=== PATIENT | female | born 1960 | race Two or more races ===

== ENCOUNTER 2021-09-25 11:18 | Emergency (ER) | payer MEDICAID ==
[~2021-09-25] VITALS: Ht 154.9 cm; Wt 66.9 kg
[2021-09-25 14:33] VITALS: BP 111/35
[2021-09-25 15:51] LABS: Basophils # (auto) 0 10 ^3/uL (0-0.2); Basophils % (auto) 0.2 % (0.0-2.0); Eosinophils # (auto) 0.1 10 ^3/uL (0-0.8); Eosinophils % (auto) 3.1 % (0.0-7.0); Hematocrit 28.7 % (36.0-46.0); Lymphocytes # (auto) 0.8 10 ^3/uL (0.4-5.4); Lymphocytes % (auto) 17.8 % (10.0-50.0); Mean Corpuscular Hemoglobin 29.4 pg (28.0-32.0); Mean Corpuscular Hgb Conc. 31.5 g/dL (32.0-36.0); Mean Corpuscular Volume 93.4 fL (80.0-100.0); Monocytes # (auto) 0.2 10 ^3/uL (0-1.3); Neutrophils # (auto) 3.2 10 ^3/uL (1.6-8.6); Neutrophils % (auto) 74.9 % (37.0-80.0); Nucleated Red Blood Cells % 0.1 %; Red Blood Cells 3.08 10^6/uL (4.0-5.20); Red Cell Distribution Width 17.5 % (11.8-14.3); White Blood Cell 4.3 10^3/uL (4.4-10.8)
[2021-09-25 16:08] LABS: INR 1.12 (0.9-1.15); Partial Thromboplastin Time 29.1 sec (24.6-33.4)
[2021-09-25 16:20] LABS: Albumin 3.9 g/dL (3.4-5.0); Calcium 8.6 mg/dL (8.5-10.1); Potassium 4.1 mmol/L (3.5-5.1)
[2021-09-25 16:23] LABS: Bilirubin, Total 0.6 mg/dL (0.2-1.0)
== END 2021-09-25 16:46 | disposition home or self-care (01) ==
LOC: ER 11:18
DX: D64.9 Anemia, unspecified (principal); R23.3 Spontaneous ecchymoses; E11.9 Type 2 diabetes mellitus without complications; I10 Essential (primary) hypertension; Z88.6 Allergy status to analgesic agent; Z88.8 Allergy status to other drugs, medicaments and biological substances
CPT/HCPCS: 36415; 80053; 85025; 85610; 85730

== ENCOUNTER 2022-10-15 10:16 | Inpatient (IN) | payer MEDICAID ==
[2022-10-15] VITALS (7 sets, daily range): BP systolic 112–126; BP diastolic 34–44; PULSE 80–86; RESP 12–28; TEMP 98–98.6; O2SAT 93–98
[~2022-10-15] VITALS: Ht 154.9 cm; Wt 69.9 kg
[2022-10-15 11:25] LABS: Urine Bacteria MANY /hpf (None Seen); Urine Blood Negative /uL (Negative); Urine Clarity CLOUDY (Clear); Urine Color Yellow (Yellow); Urine Hyaline Cast MANY /lpf (0 - 2); Urine Mucus FEW (None Seen); Urine Protein, UAD 1+ (Negative); Urine Urobilinogen Normal (Negative); Urine WBC 110 /hpf (0 - 5); Urine pH 5.5 (5.0-8.0)
[2022-10-15 12:01] LABS: Mean Corpuscular Hemoglobin 28.8 pg (28.0-32.0); Mean Corpuscular Hgb Conc. 31.3 g/dL (32.0-36.0); Mean Corpuscular Volume 91.8 fL (80.0-100.0); Red Blood Cells 2.18 10^6/uL (4.0-5.20)
[2022-10-15 12:06] LABS: Red Cell Distribution Width 21.7 % (11.8-14.3)
[2022-10-15 12:10] LABS: Hemoglobin 6.3 g/dL (12.2-16.2)
[2022-10-15 12:11] LABS: Albumin 3.9 g/dL (3.2-4.8); Alkaline Phosphatase 129 U/L (46-116); Anion Gap 9.8 (5-15); Aspartate Aminotransferase < 8 U/L (13-40); BUN/Creatinine Ratio 16.2 (10.0-20.0); Band Neutrophils % (manual) 0; Basophils % (manual) 0 (0.0-2.0); Bilirubin, Total 1.2 mg/dL (0.2-1.0); Blast Cells 0; Blood Urea Nitrogen 12 mg/dL (9-23); Calcium 8.7 mg/dL (8.5-10.1); Carbon Dioxide 19.2 mmol/L (20-30); Chloride 109 mmol/L (98-107); Glucose 181 mg/dL (74-106); Metamyelocytes % 0; Myelocytes % 0; Potassium 4.3 mmol/L (3.5-5.1); Promyelocytes % 0; Reactive Lymphocytes 0; Sodium 138 mmol/L (136-145); Total Protein 7.2 g/dL (5.7-8.2)
[2022-10-15 12:17] LABS: Alanine Aminotransferase < 9 U/L (7-40)
[2022-10-15] MEDS ORDERED: cefTRIAXone 1GM/50ML D5W 50 ML IV ONE (13:00)
[2022-10-15] MEDS ORDERED: BACL10TA PO ×2 (13:54→18:01)
[2022-10-15] MEDS ORDERED: MONT-8 PO ×2 (13:54→18:01)
[2022-10-15] MEDS ORDERED: FERR325T20 PO (13:54)
[2022-10-15] MEDS ORDERED: CHOL20003 PO (13:54)
[2022-10-15] MEDS ORDERED: ESCI1TAB37 PO (13:54)
[2022-10-15] MEDS ORDERED: LORA-483 PO (13:54)
[2022-10-15] MEDS ORDERED: METF-372 PO (13:54)
[2022-10-15] MEDS ORDERED: CHOL20002 PO ×2 (13:54→18:01)
[2022-10-15] MEDS ORDERED: ESTR0.3T PO ×2 (13:54→18:01)
[2022-10-15] MEDS ORDERED: EZET-10 PO ×2 (13:54→18:01)
[2022-10-15] MEDS ORDERED: ATOR10TA52 PO ×2 (13:54→18:01)
[2022-10-15] MEDS ORDERED: GLIM4TAB42 PO ×2 (13:54→18:01)
[2022-10-15] MEDS ORDERED: GABA-1250 PO ×2 (13:54→18:01)
[2022-10-15] MEDS ORDERED: ACETAMINOPHEN 325 MG TAB PO PRN ×2 (14:00)
[2022-10-15] MEDS ORDERED: HYDROcodone-ACET 5/325MG TAB PO PRN (14:00)
[2022-10-15] MEDS ORDERED: SODIUM CHLORIDE 0.9% 1,000 ML IV SCH ×2 (14:00)
[2022-10-15] MEDS ORDERED: DEXTROSE (50%) 50ML SYRG IV PRN (14:00)
[2022-10-15 14:27] LABS: % Iron Saturation 17.3 % (15-50)
[2022-10-15 14:40] LABS: Eosinophils % (manual) 2 (0-7); Lymphocytes % (manual) 25 (10.0-50.0); Monocytes % (manual) 2 (0-12); Platelet Estimate Adequate
[2022-10-15 15:03] LABS: INR 1.19 (0.9-1.15); Prothrombin Time 12.4 sec (9.3-11.8)
[2022-10-15 16:31] LABS: Folate (Folic Acid) 21.03 ng/mL (>5.38)
[2022-10-15 17:36] LABS: Platelet Estimate Adequate
[2022-10-15 17:37] LABS: Anisocytosis Slight; Ovalocytes FEW; Tear Drop Cells FEW
[2022-10-15] MEDS ORDERED: OXYM0.0594 (18:01)
[2022-10-15] MEDS ORDERED: FERR240T9 PO (18:01)
[2022-10-15] MEDS ORDERED: ASCO500C5 OR (18:01)
[2022-10-15] MEDS ORDERED: FER325T PO (18:01)
[2022-10-15] MEDS ORDERED: LORA-483 GT (18:01)
[2022-10-15] MEDS ORDERED: ZINC100T5 PO (18:01)
[2022-10-15] MEDS: ACCU-CHEK COMFORT CURVE STRIP VI SCH ×2 (18:41→21:58)
[2022-10-15] MEDS: InsuLIN REG 1unit/0.01ml Soln (100units/ml) SC SCH ×2 (18:42→22:03)
[2022-10-15 21:37] LABS: Basophils # (auto) 0 10 ^3/uL (0-0.2); Eosinophils # (auto) 0.2 10 ^3/uL (0-0.8); Nucleated Red Blood Cells % 0.1 %; White Blood Cell 3.8 10^3/uL (4.4-10.8)
[2022-10-15 21:39] LABS: Basophils % (auto) 0.6 % (0.0-2.0); Eosinophils % (auto) 4.9 % (0.0-7.0); Hematocrit 23.7 % (36.0-46.0); Hemoglobin 7.4 g/dL (12.2-16.2); Lymphocytes # (auto) 0.8 10 ^3/uL (0.4-5.4); Lymphocytes % (auto) 20.4 % (10.0-50.0); Mean Corpuscular Hemoglobin 28.9 pg (28.0-32.0); Mean Corpuscular Volume 93.1 fL (80.0-100.0); Monocytes # (auto) 0.2 10 ^3/uL (0-1.3); Monocytes % (auto) 4.1 % (0.0-12.0); Neutrophils # (auto) 2.6 10 ^3/uL (1.6-8.6); Red Blood Cells 2.54 10^6/uL (4.0-5.20)
[2022-10-15 21:53] LABS: Red Cell Distribution Width 20.2 % (11.8-14.3)
[2022-10-15] MEDS: BACLOFEN 10 MG TAB PO SCH (22:04)
[2022-10-15] MEDS: ATORVASTATIN 20 MG TAB PO SCH (22:04)
[2022-10-15] MEDS: GABAPENTIN 300 MG CAP PO SCH (22:04)
[2022-10-16 00:56] LABS: Basophils # (auto) 0 10 ^3/uL (0-0.2); Basophils % (auto) 0.3 % (0.0-2.0); Eosinophils # (auto) 0.2 10 ^3/uL (0-0.8); Eosinophils % (auto) 4.7 % (0.0-7.0); Hematocrit 22.9 % (36.0-46.0); Hemoglobin 7.3 g/dL (12.2-16.2); Lymphocytes # (auto) 0.9 10 ^3/uL (0.4-5.4); Lymphocytes % (auto) 24.2 % (10.0-50.0); Mean Corpuscular Hemoglobin 29.4 pg (28.0-32.0); Mean Corpuscular Hgb Conc. 32.1 g/dL (32.0-36.0); Mean Corpuscular Volume 91.7 fL (80.0-100.0); Monocytes # (auto) 0.2 10 ^3/uL (0-1.3); Monocytes % (auto) 4.7 % (0.0-12.0); Neutrophils # (auto) 2.4 10 ^3/uL (1.6-8.6); Neutrophils % (auto) 66.1 % (37.0-80.0); Nucleated Red Blood Cells % 0.1 %; Red Cell Distribution Width 19.7 % (11.8-14.3); White Blood Cell 3.7 10^3/uL (4.4-10.8)
[2022-10-16 05:00] VITALS: BP 98/32; PULSE 80; RESP 16; TEMP 97.9; O2SAT 92
[2022-10-16] MEDS: BACLOFEN 10 MG TAB PO SCH ×3 (06:00→21:05)
[2022-10-16] MEDS: GABAPENTIN 300 MG CAP PO SCH ×3 (06:00→21:06)
[2022-10-16] MEDS: InsuLIN REG 1unit/0.01ml Soln (100units/ml) SC SCH ×4 (06:27→21:09)
[2022-10-16] MEDS: ACCU-CHEK COMFORT CURVE STRIP VI SCH ×4 (06:27→21:06)
[2022-10-16 06:32] LABS: Basophils # (auto) 0 10 ^3/uL (0-0.2); Basophils % (auto) 0.2 % (0.0-2.0); Eosinophils # (auto) 0.2 10 ^3/uL (0-0.8); Hematocrit 22.8 % (36.0-46.0); Hemoglobin 7.3 g/dL (12.2-16.2); Lymphocytes # (auto) 0.9 10 ^3/uL (0.4-5.4); Lymphocytes % (auto) 24.6 % (10.0-50.0); Mean Corpuscular Volume 90.6 fL (80.0-100.0); Monocytes # (auto) 0.2 10 ^3/uL (0-1.3); Monocytes % (auto) 5.1 % (0.0-12.0); Neutrophils # (auto) 2.4 10 ^3/uL (1.6-8.6); Neutrophils % (auto) 65.1 % (37.0-80.0); Nucleated Red Blood Cells % 0.2 %; Red Blood Cells 2.52 10^6/uL (4.0-5.20); Red Cell Distribution Width 19.8 % (11.8-14.3); White Blood Cell 3.7 10^3/uL (4.4-10.8)
[2022-10-16 06:46] LABS: Albumin 3.8 g/dL (3.2-4.8); Alkaline Phosphatase 121 U/L (46-116); Anion Gap 8.3 (5-15); Aspartate Aminotransferase < 8 U/L (13-40); BUN/Creatinine Ratio 15.9 (10.0-20.0); Blood Urea Nitrogen 11 mg/dL (9-23); Calcium 8.9 mg/dL (8.7-10.4); Carbon Dioxide 21.7 mmol/L (20-30); Chloride 108 mmol/L (98-107); Glucose 134 mg/dL (74-106); Sodium 138 mmol/L (136-145)
[2022-10-16 06:47] LABS: Bilirubin, Total 1.7 mg/dL (0.2-1.0); Total Protein 7.2 g/dL (5.7-8.2)
[2022-10-16 06:51] LABS: Alanine Aminotransferase < 9 U/L (7-40)
[2022-10-16 09:00] VITALS: BP 116/48; PULSE 78; RESP 19; TEMP 97.9; O2SAT 96
[2022-10-16] MEDS ORDERED: CHOLECALCIFEROL (VITD3) 2,000 UNIT CAP/TAB PO SCH (10:00)
[2022-10-16] MEDS ORDERED: PATIENTS OWN MEDICATION (Escitalopram Oxalate 1 TAB) PO SCH (10:00)
[2022-10-16] MEDS: ZETIA 10 MG PO SCH (10:00)
[2022-10-16] MEDS: [UNRECOGNIZED DRUG - OTHER] PO SCH (10:00)
[2022-10-16] MEDS ORDERED: PATIENTS OWN MEDICATION (Atorvastatin Calcium 1 TAB) PO SCH (10:00)
[2022-10-16] MEDS ORDERED: PATIENTS OWN MEDICATION (Cholecalciferol (Vitamin D-3 Super Strengt) 1 TAB) PO SCH (10:00)
[2022-10-16] MEDS: CITALOPRAM HYDROBR 20 MG TAB PO SCH (10:35)
[2022-10-16] MEDS: cefTRIAXone 1GM/50ML D5W 50 ML IV SCH (10:35)
[2022-10-16] MEDS: CHOLECALCIFEROL (VITD3) 2,000 UNIT CAP/TAB PO SCH (10:36)
[2022-10-16] MEDS: MONTELUKAST SODIUM 10 MG TAB PO SCH (10:36)
[2022-10-16 12:26] LABS: Basophils # (auto) 0 10 ^3/uL (0-0.2); Basophils % (auto) 0.3 % (0.0-2.0); Eosinophils # (auto) 0.2 10 ^3/uL (0-0.8); Hemoglobin 7.2 g/dL (12.2-16.2); Lymphocytes # (auto) 0.7 10 ^3/uL (0.4-5.4); Monocytes # (auto) 0.1 10 ^3/uL (0-1.3); Neutrophils # (auto) 2.3 10 ^3/uL (1.6-8.6); White Blood Cell 3.3 10^3/uL (4.4-10.8)
[2022-10-16 12:30] LABS: Eosinophils % (auto) 4.7 % (0.0-7.0); Hematocrit 22.2 % (36.0-46.0); Mean Corpuscular Hemoglobin 29.2 pg (28.0-32.0); Mean Corpuscular Hgb Conc. 32.3 g/dL (32.0-36.0); Mean Corpuscular Volume 90.3 fL (80.0-100.0); Monocytes % (auto) 4.2 % (0.0-12.0); Neutrophils % (auto) 69.8 % (37.0-80.0); Red Blood Cells 2.46 10^6/uL (4.0-5.20); Red Cell Distribution Width 19.7 % (11.8-14.3)
[2022-10-16 13:00] VITALS: BP 120/53; PULSE 81; RESP 20; TEMP 98.2; O2SAT 93
[2022-10-16 17:00] VITALS: BP 117/42; PULSE 77; RESP 19; TEMP 97.8; O2SAT 94
[2022-10-16 19:01] LABS: Basophils # (auto) 0 10 ^3/uL (0-0.2); Eosinophils # (auto) 0.1 10 ^3/uL (0-0.8); Hemoglobin 7.3 g/dL (12.2-16.2); Lymphocytes # (auto) 0.6 10 ^3/uL (0.4-5.4); Mean Corpuscular Hgb Conc. 31.8 g/dL (32.0-36.0); Monocytes # (auto) 0.1 10 ^3/uL (0-1.3); Red Blood Cells 2.52 10^6/uL (4.0-5.20); Red Cell Distribution Width 19.5 % (11.8-14.3); White Blood Cell 2.8 10^3/uL (4.4-10.8)
[2022-10-16 19:02] LABS: Basophils % (auto) 0.3 % (0.0-2.0); Lymphocytes % (auto) 21.6 % (10.0-50.0); Mean Corpuscular Volume 91.1 fL (80.0-100.0); Monocytes % (auto) 3.5 % (0.0-12.0); Neutrophils # (auto) 1.9 10 ^3/uL (1.6-8.6); Neutrophils % (auto) 69.6 % (37.0-80.0); Nucleated Red Blood Cells % 0.3 %
[2022-10-16 19:22] LABS: % Iron Saturation 16.4 % (15-50)
[2022-10-16 20:00] VITALS: PULSE 77; RESP 19; O2SAT 94
[2022-10-16] MEDS: ATORVASTATIN 20 MG TAB PO SCH (21:10)
[2022-10-16 22:00] VITALS: BP 126/49; PULSE 84; RESP 20; TEMP 98; O2SAT 95
[2022-10-16] MEDS ORDERED: KETOROLAC TROMETH 30 MG/ML 1ML VIAL IV ONE (23:00)
[2022-10-16] MEDS ORDERED: ACETAMINOPHEN 325 MG TAB PO PRN (23:30)
[2022-10-17] MEDS ORDERED: ACETAMINOPHEN 325 MG TAB PO PRN
[2022-10-17 05:00] VITALS: BP 96/52; PULSE 65; RESP 22; TEMP 97.8; O2SAT 100
[2022-10-17] MEDS: ACCU-CHEK COMFORT CURVE STRIP VI SCH ×2 (06:16→12:35)
[2022-10-17] MEDS: BACLOFEN 10 MG TAB PO SCH (06:16)
[2022-10-17] MEDS: GABAPENTIN 300 MG CAP PO SCH (06:16)
[2022-10-17] MEDS: InsuLIN REG 1unit/0.01ml Soln (100units/ml) SC SCH ×2 (06:17→12:40)
[2022-10-17 06:26] LABS: Basophils # (auto) 0 10 ^3/uL (0-0.2); Eosinophils # (auto) 0.2 10 ^3/uL (0-0.8); Eosinophils % (auto) 6.7 % (0.0-7.0); Monocytes # (auto) 0.1 10 ^3/uL (0-1.3); Neutrophils # (auto) 1.9 10 ^3/uL (1.6-8.6); Nucleated Red Blood Cells % 0.1 %; Red Cell Distribution Width 19.8 % (11.8-14.3)
[2022-10-17 06:30] LABS: Basophils % (auto) 0.4 % (0.0-2.0); Hematocrit 21.3 % (36.0-46.0); Lymphocytes # (auto) 0.8 10 ^3/uL (0.4-5.4); Lymphocytes % (auto) 25.6 % (10.0-50.0); Mean Corpuscular Hemoglobin 29.9 pg (28.0-32.0); Mean Corpuscular Hgb Conc. 32.9 g/dL (32.0-36.0); Mean Corpuscular Volume 90.8 fL (80.0-100.0); Monocytes % (auto) 4.1 % (0.0-12.0); Neutrophils % (auto) 63.2 % (37.0-80.0); Red Blood Cells 2.34 10^6/uL (4.0-5.20); White Blood Cell 3.1 10^3/uL (4.4-10.8)
[2022-10-17 06:46] LABS: Anion Gap 5.2 (5-15); Calcium 8.7 mg/dL (8.7-10.4); Carbon Dioxide 24.8 mmol/L (20-30); Chloride 109 mmol/L (98-107); Glucose 153 mg/dL (74-106); Potassium 3.8 mmol/L (3.5-5.1); Sodium 139 mmol/L (136-145)
[2022-10-17 06:47] LABS: BUN/Creatinine Ratio 14.8 (10.0-20.0); Blood Urea Nitrogen 13 mg/dL (9-23)
[2022-10-17 06:48] LABS: Albumin 3.7 g/dL (3.2-4.8); Aspartate Aminotransferase < 8 U/L (13-40)
[2022-10-17 06:49] LABS: Bilirubin, Total 1.1 mg/dL (0.2-1.0)
[2022-10-17 06:58] LABS: Alanine Aminotransferase < 9 U/L (7-40); Alkaline Phosphatase 122 U/L (46-116)
[2022-10-17 08:00] VITALS: PULSE 82; RESP 20; O2SAT 94
[2022-10-17 09:18] VITALS: BP 119/41; PULSE 82; RESP 20; TEMP 97.8; O2SAT 94
[2022-10-17] MEDS ORDERED: ASPI1TAB20 PO (09:39)
[2022-10-17] MEDS ORDERED: CILO100T PO (09:40)
[2022-10-17] MEDS ORDERED: NITR-52 PO ×3 (09:41)
[2022-10-17] MEDS: [UNRECOGNIZED DRUG - OTHER] PO SCH (10:00)
[2022-10-17] MEDS: ZETIA 10 MG PO SCH (10:00)
[2022-10-17 10:49] VITALS: BP 119/41; PULSE 82; RESP 20; TEMP 97.8; O2SAT 94
[2022-10-17] MEDS: CITALOPRAM HYDROBR 20 MG TAB PO SCH (10:51)
[2022-10-17] MEDS: cefTRIAXone 1GM/50ML D5W 50 ML IV SCH (10:51)
[2022-10-17] MEDS: CHOLECALCIFEROL (VITD3) 2,000 UNIT CAP/TAB PO SCH (10:52)
[2022-10-17] MEDS: MONTELUKAST SODIUM 10 MG TAB PO SCH (10:52)
[2022-10-17 12:41] VITALS: BP 112/34; PULSE 81; RESP 20; TEMP 98.4; O2SAT 96
== END 2022-10-17 13:43 | disposition home or self-care (01) | DRG 197 ==
LOC: ER 10:16 → OVERFLOW 13:51 → WEST WING 16:33
PROVIDERS: ADMIT Internal Medicine Pulmonary Disease; ATTEND Internal Medicine Pulmonary Disease
PROC: 30233N1 Transfusion of Nonautologous Red Blood Cells into Peripheral Vein, Percutaneous Approach (ICD-10-PCS; principal; 2022-10-15)
DX: E11.51 Type 2 diabetes mellitus with diabetic peripheral angiopathy without gangrene (principal); I95.9 Hypotension, unspecified; D64.9 Anemia, unspecified; E11.65 Type 2 diabetes mellitus with hyperglycemia; E66.9 Obesity, unspecified; E78.5 Hyperlipidemia, unspecified; I10 Essential (primary) hypertension; N30.00 Acute cystitis without hematuria; Z88.6 Allergy status to analgesic agent; Z90.710 Acquired absence of both cervix and uterus; Z88.8 Allergy status to other drugs, medicaments and biological substances; Z82.49 Family history of ischemic heart disease and other diseases of the circulatory system; Z83.3 Family history of diabetes mellitus; Z85.72 Personal history of non-Hodgkin lymphomas; Z68.28 Body mass index [BMI] 28.0-28.9, adult
CPT/HCPCS: 36415; 71045; 71275; 76700; 80053; 81001; 82270; 82607; 82746; 82962; 83036; 83540; 83550; 83880; 84484; 85007; 85025; 85027; 85379; 85610; 86850; 86900; 86901; 86920; 87086; 93306; 93925; 93970; 96365; 99291; G0378; J0696; J1815

== ENCOUNTER 2022-11-01 11:11 | Inpatient (IN) | payer MEDICAID ==
[~2022-11-01] VITALS: Ht 154.9 cm; Wt 74.0 kg
[2022-11-01] VITALS (7 sets, daily range): BP systolic 111–118; BP diastolic 36–43; PULSE 81–91; RESP 18–26; TEMP 97.8–98.3; O2SAT 95–98
[~2022-11-01 11:11] MED LIST: ASCO500C5 OR; ASPI1TAB20 PO; ATOR10TA52 PO; BACL10TA PO; CHOL20002 PO; CHOL20003 PO; CILO100T PO; ESCI1TAB37 PO; ESTR0.3T PO; EZET-10 PO; FER325T PO; FERR240T9 PO; FERR325T20 PO; GABA-1250 PO; GLIM4TAB42 PO; LORA-483 GT; LORA-483 PO; METF-372 PO; MONT-8 PO; NITR-52 PO; OXYM0.0594; ZINC100T5 PO
[2022-11-01 12:33] LABS: Urine Bacteria MOD /hpf (None Seen); Urine Blood 1+ /uL (Negative); Urine Clarity HAZY (Clear); Urine Color Yellow (Yellow); Urine Hyaline Cast FEW /lpf (0 - 2); Urine Mucus FEW (None Seen); Urine Protein, UAD 1+ (Negative); Urine Specific Gravity 1.021 (1.001-1.035); Urine WBC 3 /hpf (0 - 5); Urine pH 5.5 (5.0-8.0)
[2022-11-01 12:47] LABS: Alkaline Phosphatase 125 U/L (46-116); Anion Gap 6 (5-15); Aspartate Aminotransferase < 8 U/L (13-40); BUN/Creatinine Ratio 30.6 (10.0-20.0); Blood Urea Nitrogen 30 mg/dL (9-23); Calcium 9.1 mg/dL (8.5-10.1); Carbon Dioxide 22 mmol/L (20-30); Chloride 106 mmol/L (98-107); Glucose 215 mg/dL (74-106); Potassium 4.1 mmol/L (3.5-5.1); Sodium 134 mmol/L (136-145)
[2022-11-01 12:48] LABS: Albumin 3.7 g/dL (3.2-4.8); Bilirubin, Total 1.3 mg/dL (0.2-1.0); Total Protein 6.9 g/dL (5.7-8.2)
[2022-11-01 12:53] LABS: Alanine Aminotransferase < 9 U/L (7-40)
[2022-11-01 12:58] LABS: Basophils # (auto) 0 10 ^3/uL (0-0.2); Basophils % (auto) 0.2 % (0.0-2.0); Eosinophils # (auto) 0.2 10 ^3/uL (0-0.8); Lymphocytes # (auto) 0.5 10 ^3/uL (0.4-5.4); Monocytes # (auto) 0.1 10 ^3/uL (0-1.3); Neutrophils # (auto) 2.6 10 ^3/uL (1.6-8.6); Nucleated Red Blood Cells % 0.1 %; White Blood Cell 3.4 10^3/uL (4.4-10.8)
[2022-11-01 12:59] LABS: Eosinophils % (auto) 6.9 % (0.0-7.0); Hematocrit 19.4 % (36.0-46.0); Lymphocytes % (auto) 14.3 % (10.0-50.0); Mean Corpuscular Hemoglobin 29.1 pg (28.0-32.0); Mean Corpuscular Hgb Conc. 31.7 g/dL (32.0-36.0); Mean Corpuscular Volume 91.9 fL (80.0-100.0); Monocytes % (auto) 3.7 % (0.0-12.0); Neutrophils % (auto) 74.9 % (37.0-80.0); Red Blood Cells 2.11 10^6/uL (4.0-5.20)
[2022-11-01 13:02] LABS: Hemoglobin 6.1 g/dL (12.2-16.2)
[2022-11-01] MEDS ORDERED: ONDANSETRON HCL 4 MG/2 ML VIAL IV PRN (17:00)
[2022-11-01] MEDS ORDERED: ACCU-CHEK COMFORT CURVE STRIP VI SCH (17:00)
[2022-11-01] MEDS ORDERED: DOCUSATE SOD 100 MG CAP PO PRN (17:00)
[2022-11-01] MEDS ORDERED: InsuLIN REG 1unit/0.01ml Soln (100units/ml) SC SCH (17:00)
[2022-11-01] MEDS ORDERED: MORPHINE SULFATE INJ 2 MG/ml SYRG IV PRN (17:00)
[2022-11-01] MEDS ORDERED: DEXTROSE (50%) 50ML SYRG IV PRN ×2 (17:00→20:30)
[2022-11-01 19:47] LABS: Hemoglobin 7.1 g/dL (12.2-16.2)
[2022-11-01] MEDS ORDERED: diphenhdrAMINE HCL 50 MG/1 ML VL IV PRN (20:45)
[2022-11-01 21:07] LABS: INR 1.23 (0.9-1.15); Prothrombin Time 12.7 sec (9.3-11.8)
[2022-11-01] MEDS: ACCU-CHEK COMFORT CURVE STRIP VI SCH (22:00)
[2022-11-01] MEDS: FERROUS SULFATE 325mg EC TAB PO SCH (22:37)
[2022-11-01] MEDS: BACLOFEN 10 MG TAB PO SCH (22:37)
[2022-11-01] MEDS: GABAPENTIN 300 MG CAP PO SCH (22:38)
[2022-11-01] MEDS: CILOSTAZOL 100 MG TAB PO SCH (22:38)
[2022-11-01] MEDS: InsuLIN REG 1unit/0.01ml Soln (100units/ml) SC SCH (22:53)
[2022-11-01 23:51] LABS: Hematocrit 20.7 % (36.0-46.0)
[2022-11-01 23:57] LABS: Hemoglobin 6.7 g/dL (12.2-16.2)
[2022-11-02] VITALS (15 sets, daily range): BP systolic 97–149; BP diastolic 32–67; PULSE 56–94; RESP 17–19; TEMP 97.5–98.8; O2SAT 90–99
[2022-11-02] MEDS: GABAPENTIN 300 MG CAP PO SCH ×3 (06:15→21:01)
[2022-11-02] MEDS: FERROUS SULFATE 325mg EC TAB PO SCH ×3 (06:15→21:01)
[2022-11-02] MEDS: BACLOFEN 10 MG TAB PO SCH ×3 (06:15→21:01)
[2022-11-02 06:20] LABS: Albumin 3.6 g/dL (3.2-4.8); Alkaline Phosphatase 118 U/L (46-116); Anion Gap 8 (5-15); Aspartate Aminotransferase < 8 U/L (13-40); BUN/Creatinine Ratio 27.7 (10.0-20.0); Blood Urea Nitrogen 23 mg/dL (9-23); Carbon Dioxide 23 mmol/L (20-30); Chloride 108 mmol/L (98-107); Glucose 109 mg/dL (74-106); Potassium 3.8 mmol/L (3.5-5.1); Sodium 139 mmol/L (136-145); Total Protein 6.8 g/dL (5.7-8.2)
[2022-11-02 06:31] LABS: Basophils # (auto) 0 10 ^3/uL (0-0.2); Eosinophils # (auto) 0.2 10 ^3/uL (0-0.8); Hemoglobin 7.4 g/dL (12.2-16.2); Lymphocytes # (auto) 0.7 10 ^3/uL (0.4-5.4); Monocytes # (auto) 0.1 10 ^3/uL (0-1.3); Neutrophils # (auto) 2.1 10 ^3/uL (1.6-8.6); Nucleated Red Blood Cells % 0.1 %; White Blood Cell 3.1 10^3/uL (4.4-10.8)
[2022-11-02 06:33] LABS: Alanine Aminotransferase < 9 U/L (7-40)
[2022-11-02 06:34] LABS: Basophils % (auto) 0.1 % (0.0-2.0); Eosinophils % (auto) 5.2 % (0.0-7.0); Hematocrit 22.7 % (36.0-46.0); Lymphocytes % (auto) 23.1 % (10.0-50.0); Mean Corpuscular Hemoglobin 29.5 pg (28.0-32.0); Mean Corpuscular Hgb Conc. 32.8 g/dL (32.0-36.0); Mean Corpuscular Volume 89.9 fL (80.0-100.0); Monocytes % (auto) 4.4 % (0.0-12.0); Neutrophils % (auto) 67.2 % (37.0-80.0); Red Blood Cells 2.52 10^6/uL (4.0-5.20)
[2022-11-02] MEDS: InsuLIN REG 1unit/0.01ml Soln (100units/ml) SC SCH ×4 (06:45→21:15)
[2022-11-02] MEDS: ACCU-CHEK COMFORT CURVE STRIP VI SCH ×4 (06:45→21:15)
[2022-11-02 06:48] LABS: Red Cell Distribution Width 20.7 % (11.8-14.3)
[2022-11-02] MEDS ORDERED: cefTRIAXone 1GM/50ML D5W 50 ML IV SCH (09:00)
[2022-11-02] MEDS: ESTROGENS CONJUGATED 0.3 MG PO SCH (10:00)
[2022-11-02] MEDS: CILOSTAZOL 100 MG TAB PO SCH ×2 (10:26→21:01)
[2022-11-02] MEDS: ATORVASTATIN 20 MG TAB PO SCH (10:27)
[2022-11-02] MEDS: ASPirin-EC 81 mg tab PO SCH (10:27)
[2022-11-02] MEDS: MONTELUKAST SODIUM 10 MG TAB PO SCH (10:27)
[2022-11-02] MEDS: LORATADINE 10 MG TAB PO SCH (10:27)
[2022-11-02] MEDS: EZETIMIBE 10 MG PO SCH (10:28)
[2022-11-02] MEDS: Escitalopram Oxalate 20MG PO SCH (10:29)
[2022-11-02] MEDS: MEROPENEM 1GM IVPB 100 ML IV SCH (17:21)
[2022-11-02 20:05] LABS: Hemoglobin 7.2 g/dL (12.2-16.2)
[2022-11-02 20:07] LABS: Hematocrit 21.9 % (36.0-46.0)
[2022-11-03] MEDS: MEROPENEM 1GM IVPB 100 ML IV SCH ×3 (00:09→17:22)
[2022-11-03] MEDS: FERROUS SULFATE 325mg EC TAB PO SCH ×3 (06:04→20:57)
[2022-11-03] MEDS: BACLOFEN 10 MG TAB PO SCH ×3 (06:04→20:57)
[2022-11-03] MEDS: GABAPENTIN 300 MG CAP PO SCH ×3 (06:04→20:57)
[2022-11-03] MEDS: InsuLIN REG 1unit/0.01ml Soln (100units/ml) SC SCH ×4 (06:09→21:15)
[2022-11-03 06:18] LABS: Basophils # (auto) 0 10 ^3/uL (0-0.2); Eosinophils # (auto) 0.2 10 ^3/uL (0-0.8); Lymphocytes # (auto) 0.8 10 ^3/uL (0.4-5.4); Monocytes # (auto) 0.1 10 ^3/uL (0-1.3); Neutrophils # (auto) 1.9 10 ^3/uL (1.6-8.6)
[2022-11-03 06:23] LABS: Basophils % (auto) 0.4 % (0.0-2.0); Eosinophils % (auto) 5.5 % (0.0-7.0); Hemoglobin 7.1 g/dL (12.2-16.2); Lymphocytes % (auto) 25.9 % (10.0-50.0); Mean Corpuscular Hemoglobin 29.7 pg (28.0-32.0); Mean Corpuscular Hgb Conc. 32.5 g/dL (32.0-36.0); Mean Corpuscular Volume 91.2 fL (80.0-100.0); Monocytes % (auto) 3.6 % (0.0-12.0); Neutrophils % (auto) 64.6 % (37.0-80.0); Nucleated Red Blood Cells % 0.5 %; Red Blood Cells 2.41 10^6/uL (4.0-5.20)
[2022-11-03 06:28] LABS: Red Cell Distribution Width 20.3 % (11.8-14.3)
[2022-11-03 06:33] LABS: Anion Gap 7 (5-15); Carbon Dioxide 24 mmol/L (20-30); Chloride 107 mmol/L (98-107); Potassium 4.1 mmol/L (3.5-5.1); Sodium 138 mmol/L (136-145)
[2022-11-03 06:34] LABS: Calcium 8.9 mg/dL (8.7-10.4)
[2022-11-03 06:39] LABS: BUN/Creatinine Ratio 24.7 (10.0-20.0); Blood Urea Nitrogen 20 mg/dL (9-23); Glucose 156 mg/dL (74-106)
[2022-11-03] MEDS: ACCU-CHEK COMFORT CURVE STRIP VI SCH ×4 (06:40→20:57)
[2022-11-03 08:00] VITALS: BP 118/43; PULSE 88; PULSE 91; RESP 20; TEMP 98.3; O2SAT 92
[2022-11-03 08:30] VITALS: BP 118/43; PULSE 91; RESP 20; TEMP 98.3; O2SAT 92
[2022-11-03] MEDS: ESTROGENS CONJUGATED 0.3 MG PO SCH (10:00)
[2022-11-03] MEDS: ASPirin-EC 81 mg tab PO SCH (10:13)
[2022-11-03] MEDS: ATORVASTATIN 20 MG TAB PO SCH (10:14)
[2022-11-03] MEDS: LORATADINE 10 MG TAB PO SCH (10:14)
[2022-11-03] MEDS: MONTELUKAST SODIUM 10 MG TAB PO SCH (10:14)
[2022-11-03] MEDS: CILOSTAZOL 100 MG TAB PO SCH ×2 (10:15→20:57)
[2022-11-03] MEDS: EZETIMIBE 10 MG PO SCH (10:16)
[2022-11-03] MEDS: Escitalopram Oxalate 20MG PO SCH (10:16)
[2022-11-03 13:19] VITALS: BP 96/74; PULSE 73; RESP 20; TEMP 97.8; O2SAT 95
[2022-11-03 13:20] VITALS: BP 121/40; PULSE 99; RESP 18; TEMP 98.1; O2SAT 92
[2022-11-03 15:27] LABS: Urine Bacteria FEW /hpf (None Seen); Urine Blood Negative /uL (Negative); Urine Clarity Clear (Clear); Urine Color Yellow (Yellow); Urine Hyaline Cast FEW /lpf (0 - 2); Urine Protein, UAD Negative (Negative); Urine Specific Gravity 1.019 (1.001-1.035); Urine WBC <1 /hpf (0 - 5); Urine pH 5.5 (5.0-8.0)
[2022-11-03 17:00] VITALS: BP 126/36; PULSE 96; RESP 20; TEMP 97.9; O2SAT 93
[2022-11-03 20:00] VITALS: PULSE 99; RESP 18; O2SAT 92
[2022-11-04] VITALS (7 sets, daily range): BP systolic 108–131; BP diastolic 37–45; PULSE 85–98; RESP 17–20; TEMP 98.1–98.3; O2SAT 92–98
[2022-11-04] MEDS: MEROPENEM 1GM IVPB 100 ML IV SCH ×3 (00:35→18:06)
[2022-11-04 05:07] LABS: Hematocrit 22.1 % (36.0-46.0); Hemoglobin 7.3 g/dL (12.2-16.2)
[2022-11-04] MEDS: BACLOFEN 10 MG TAB PO SCH ×3 (06:04→22:20)
[2022-11-04] MEDS: GABAPENTIN 300 MG CAP PO SCH ×3 (06:04→22:20)
[2022-11-04] MEDS: ACCU-CHEK COMFORT CURVE STRIP VI SCH ×4 (06:05→22:20)
[2022-11-04] MEDS: FERROUS SULFATE 325mg EC TAB PO SCH ×3 (06:05→22:20)
[2022-11-04] MEDS: InsuLIN REG 1unit/0.01ml Soln (100units/ml) SC SCH ×4 (06:06→22:21)
[2022-11-04] MEDS: ASPirin-EC 81 mg tab PO SCH (10:10)
[2022-11-04] MEDS: MONTELUKAST SODIUM 10 MG TAB PO SCH (10:10)
[2022-11-04] MEDS: LORATADINE 10 MG TAB PO SCH (10:10)
[2022-11-04] MEDS: ATORVASTATIN 20 MG TAB PO SCH (10:10)
[2022-11-04] MEDS: EZETIMIBE 10 MG PO SCH (10:11)
[2022-11-04] MEDS: ESTROGENS CONJUGATED 0.3 MG PO SCH (10:12)
[2022-11-04] MEDS: Escitalopram Oxalate 20MG PO SCH (10:13)
[2022-11-04] MEDS: CILOSTAZOL 100 MG TAB PO SCH ×2 (11:13→22:20)
[2022-11-04 23:51] LABS: Urine Bacteria NONE SEEN /hpf (None Seen); Urine Blood Negative /uL (Negative); Urine Clarity Clear (Clear); Urine Protein, UAD Negative (Negative); Urine Specific Gravity 1.016 (1.001-1.035); Urine Urobilinogen Normal (Negative); Urine WBC <1 /hpf (0 - 5); Urine pH 5.5 (5.0-8.0)
[2022-11-04 23:54] LABS: Urine Color Straw (Yellow)
[2022-11-05] MEDS: MEROPENEM 1GM IVPB 100 ML IV SCH ×3 (00:58→17:00)
[2022-11-05 05:00] VITALS: BP 118/48; PULSE 94; RESP 18; TEMP 98.5; O2SAT 96
[2022-11-05] MEDS: GABAPENTIN 300 MG CAP PO SCH ×3 (06:40→21:43)
[2022-11-05] MEDS: BACLOFEN 10 MG TAB PO SCH ×3 (06:40→21:43)
[2022-11-05] MEDS: FERROUS SULFATE 325mg EC TAB PO SCH ×3 (06:40→21:43)
[2022-11-05] MEDS: ACCU-CHEK COMFORT CURVE STRIP VI SCH ×4 (06:40→21:43)
[2022-11-05] MEDS: InsuLIN REG 1unit/0.01ml Soln (100units/ml) SC SCH ×4 (06:41→21:46)
[2022-11-05 08:00] VITALS: PULSE 91; RESP 18; O2SAT 96
[2022-11-05] MEDS: ASPirin-EC 81 mg tab PO SCH (08:50)
[2022-11-05] MEDS: MONTELUKAST SODIUM 10 MG TAB PO SCH (08:50)
[2022-11-05] MEDS: ATORVASTATIN 20 MG TAB PO SCH (08:50)
[2022-11-05] MEDS: LORATADINE 10 MG TAB PO SCH (08:50)
[2022-11-05] MEDS: CILOSTAZOL 100 MG TAB PO SCH ×2 (10:00→21:43)
[2022-11-05] MEDS: Escitalopram Oxalate 20MG PO SCH (12:19)
[2022-11-05] MEDS: EZETIMIBE 10 MG PO SCH (12:20)
[2022-11-05] MEDS: ESTROGENS CONJUGATED 0.3 MG PO SCH (12:20)
[2022-11-05 20:00] VITALS: PULSE 78; PULSE 92; RESP 20; O2SAT 93
[2022-11-06] MEDS: MEROPENEM 1GM IVPB 100 ML IV SCH ×2 (01:18→08:32)
[2022-11-06 05:00] VITALS: BP 106/39; PULSE 93; RESP 16; TEMP 98.1; O2SAT 90
[2022-11-06] MEDS: GABAPENTIN 300 MG CAP PO SCH ×2 (05:36→13:46)
[2022-11-06] MEDS: FERROUS SULFATE 325mg EC TAB PO SCH ×2 (05:36→13:46)
[2022-11-06] MEDS: BACLOFEN 10 MG TAB PO SCH ×2 (05:36→13:46)
[2022-11-06 06:19] LABS: Basophils # (auto) 0 10 ^3/uL (0-0.2); Eosinophils # (auto) 0.3 10 ^3/uL (0-0.8); Hemoglobin 7.2 g/dL (12.2-16.2); Lymphocytes # (auto) 0.9 10 ^3/uL (0.4-5.4); Monocytes # (auto) 0.2 10 ^3/uL (0-1.3); Neutrophils # (auto) 1.8 10 ^3/uL (1.6-8.6); White Blood Cell 3.2 10^3/uL (4.4-10.8)
[2022-11-06 06:23] LABS: Basophils % (auto) 0.4 % (0.0-2.0); Eosinophils % (auto) 8.7 % (0.0-7.0); Hematocrit 22.8 % (36.0-46.0); Lymphocytes % (auto) 29.2 % (10.0-50.0); Mean Corpuscular Hemoglobin 28.8 pg (28.0-32.0); Mean Corpuscular Hgb Conc. 31.6 g/dL (32.0-36.0); Mean Corpuscular Volume 91.1 fL (80.0-100.0); Monocytes % (auto) 5.4 % (0.0-12.0); Neutrophils % (auto) 56.3 % (37.0-80.0); Nucleated Red Blood Cells % 0.3 %; Red Blood Cells 2.51 10^6/uL (4.0-5.20)
[2022-11-06] MEDS: ACCU-CHEK COMFORT CURVE STRIP VI SCH ×2 (06:28→12:39)
[2022-11-06 06:30] LABS: Calcium 8.8 mg/dL (8.7-10.4); Chloride 104 mmol/L (98-107); Potassium 4.1 mmol/L (3.5-5.1); Sodium 137 mmol/L (136-145)
[2022-11-06 06:31] LABS: Anion Gap 6 (5-15); Carbon Dioxide 27 mmol/L (20-30); Red Cell Distribution Width 20.4 % (11.8-14.3)
[2022-11-06] MEDS: InsuLIN REG 1unit/0.01ml Soln (100units/ml) SC SCH ×2 (06:31→12:40)
[2022-11-06 06:36] LABS: BUN/Creatinine Ratio 25.7 (10.0-20.0); Blood Urea Nitrogen 19 mg/dL (9-23); Glucose 193 mg/dL (74-106)
[2022-11-06 08:00] VITALS: PULSE 88
[2022-11-06] MEDS: ESTROGENS CONJUGATED 0.3 MG PO SCH (08:32)
[2022-11-06] MEDS: EZETIMIBE 10 MG PO SCH (08:32)
[2022-11-06] MEDS: Escitalopram Oxalate 20MG PO SCH (08:32)
[2022-11-06] MEDS: MONTELUKAST SODIUM 10 MG TAB PO SCH (08:33)
[2022-11-06] MEDS: LORATADINE 10 MG TAB PO SCH (08:33)
[2022-11-06] MEDS: ASPirin-EC 81 mg tab PO SCH (08:33)
[2022-11-06] MEDS: CILOSTAZOL 100 MG TAB PO SCH (08:33)
[2022-11-06] MEDS: ATORVASTATIN 20 MG TAB PO SCH (08:33)
[2022-11-06 09:00] VITALS: BP 116/46; PULSE 91; RESP 20; TEMP 98.4; O2SAT 93
[2022-11-06] MEDS ORDERED: CIPR500T4 PO (09:32)
[2022-11-06 12:39] VITALS: BP 101/40; PULSE 101; RESP 20; TEMP 98.3; O2SAT 91
== END 2022-11-06 13:54 | disposition home or self-care (01) | DRG 720 ==
LOC: ER 11:11 → TELE 16:57 → TELE-WESTW 21:24
PROVIDERS: ADMIT Nurse Practitioner Family; ATTEND Nurse Practitioner Acute Care
PROC: 30233N1 Transfusion of Nonautologous Red Blood Cells into Peripheral Vein, Percutaneous Approach (ICD-10-PCS; principal; 2022-11-01)
DX: A41.9 Sepsis, unspecified organism (principal); C79.52 Secondary malignant neoplasm of bone marrow; D62 Acute posthemorrhagic anemia; E78.5 Hyperlipidemia, unspecified; I10 Essential (primary) hypertension; T45.1X5A Adverse effect of antineoplastic and immunosuppressive drugs, initial encounter; R55 Syncope and collapse; N30.00 Acute cystitis without hematuria; E11.9 Type 2 diabetes mellitus without complications; Y92.89 Other specified places as the place of occurrence of the external cause; Z90.710 Acquired absence of both cervix and uterus; Z88.5 Allergy status to narcotic agent
CPT/HCPCS: 36415; 80048; 80053; 81001; 82270; 82962; 84484; 85014; 85018; 85025; 85610; 86850; 86900; 86901; 86920; 87086; 93005; G0378; J0696; J1815; J2185

== ENCOUNTER 2022-12-04 11:23 | Emergency (ER) | payer MEDICAID ==
[~2022-12-04] VITALS: Ht 154.9 cm; Wt 61.8 kg
[~2022-12-04 11:23] MED LIST changes: +CIPR500T4 PO
[2022-12-04 11:56] VITALS: O2SAT 98
[2022-12-04] MEDS ORDERED: FAMOTIDINE (10MG/ML) 2ML VL IV ONE (12:00)
[2022-12-04] MEDS ORDERED: diphenhdrAMINE HCL 50 MG/1 ML VL IV ONE (12:00)
[2022-12-04] MEDS ORDERED: methylPREDNISolone SOD SUCC 125 MG/2 ML VL IV ONE (12:00)
[2022-12-04] MEDS ORDERED: SODIUM CHLORIDE 0.9% 500 ML IV ONE (12:00)
[2022-12-04 12:23] LABS: Basophils # (auto) 0 10 ^3/uL (0-0.2); Basophils % (auto) 0.3 % (0.0-2.0); Eosinophils # (auto) 0.3 10 ^3/uL (0-0.8); Hematocrit 24.7 % (36.0-46.0); Mean Corpuscular Hemoglobin 29.4 pg (28.0-32.0); Mean Corpuscular Volume 90.4 fL (80.0-100.0); Monocytes # (auto) 0.3 10 ^3/uL (0-1.3); Nucleated Red Blood Cells % 0.1 %; White Blood Cell 4.1 10^3/uL (4.4-10.8)
[2022-12-04 12:25] LABS: Eosinophils % (auto) 7.2 % (0.0-7.0); Lymphocytes # (auto) 0.6 10 ^3/uL (0.4-5.4); Lymphocytes % (auto) 13.7 % (10.0-50.0); Mean Corpuscular Hgb Conc. 32.5 g/dL (32.0-36.0); Monocytes % (auto) 6.4 % (0.0-12.0); Neutrophils # (auto) 2.9 10 ^3/uL (1.6-8.6); Neutrophils % (auto) 72.4 % (37.0-80.0); Red Blood Cells 2.73 10^6/uL (4.0-5.20); Red Cell Distribution Width 20.7 % (11.8-14.3)
[2022-12-04 12:41] LABS: Alkaline Phosphatase 158 U/L (46-116); Anion Gap 9 (5-15); Aspartate Aminotransferase < 8 U/L (13-40); BUN/Creatinine Ratio 19.5 (10.0-20.0); Blood Urea Nitrogen 17 mg/dL (9-23); Calcium 9.4 mg/dL (8.5-10.1); Carbon Dioxide 24 mmol/L (20-30); Chloride 104 mmol/L (98-107); Glucose 242 mg/dL (74-106); Sodium 137 mmol/L (136-145); Total Protein 7.6 g/dL (5.7-8.2)
[2022-12-04 12:42] LABS: Alanine Aminotransferase < 9 U/L (7-40)
[2022-12-04 13:42] LABS: Urine Bacteria FEW /hpf (None Seen); Urine Blood Negative /uL (Negative); Urine Clarity Clear (Clear); Urine Color Yellow (Yellow); Urine Hyaline Cast FEW /lpf (0 - 2); Urine Mucus FEW (None Seen); Urine Protein, UAD TRACE (Negative); Urine WBC 2 /hpf (0 - 5); Urine pH 5.5 (5.0-8.0)
[2022-12-04] MEDS ORDERED: EPIN0.1I11 IJ (15:36)
[2022-12-04] MEDS ORDERED: PRED20TA2 PO (15:36)
[2022-12-04 15:50] VITALS: BP 119/69; PULSE 88; RESP 18; O2SAT 97
== END 2022-12-04 16:00 | disposition home or self-care (01) ==
LOC: EDBD 11:23 → ER 11:23
DX: E78.5 Hyperlipidemia, unspecified (principal); E11.9 Type 2 diabetes mellitus without complications; I10 Essential (primary) hypertension; Z90.710 Acquired absence of both cervix and uterus; Z98.51 Tubal ligation status
CPT/HCPCS: 36415; 71045; 80053; 81001; 83880; 84484; 85025; 96361; 96374; 96375; 99284; J1200; J2930; J3490; J7040

== ENCOUNTER 2022-12-06 21:45 | Inpatient (IN) | payer MEDICAID ==
[~2022-12-06] VITALS: Ht 154.9 cm; Wt 65.0 kg
[~2022-12-06 21:45] MED LIST changes: +EPIN0.1I11 IJ; +PRED20TA2 PO
[2022-12-06] MEDS ORDERED: HYDROmorphone HCL 2 MG/ML VL/or syr IM ONE (23:00)
[2022-12-06 23:01] LABS: Basophils # (auto) 0 10 ^3/uL (0-0.2); Basophils % (auto) 0.3 % (0.0-2.0); Eosinophils # (auto) 0.3 10 ^3/uL (0-0.8); Hematocrit 25.3 % (36.0-46.0); Hemoglobin 8.2 g/dL (12.2-16.2); Mean Corpuscular Hemoglobin 29.8 pg (28.0-32.0); Mean Corpuscular Hgb Conc. 32.6 g/dL (32.0-36.0)
[2022-12-06 23:03] LABS: Lymphocytes # (auto) 0.7 10 ^3/uL (0.4-5.4); Lymphocytes % (auto) 12.3 % (10.0-50.0); Mean Corpuscular Volume 91.4 fL (80.0-100.0); Monocytes # (auto) 0.4 10 ^3/uL (0-1.3); Monocytes % (auto) 6.9 % (0.0-12.0); Neutrophils % (auto) 75.5 % (37.0-80.0); Nucleated Red Blood Cells % 0.1 %; Red Blood Cells 2.77 10^6/uL (4.0-5.20); White Blood Cell 5.3 10^3/uL (4.4-10.8)
[2022-12-06 23:11] LABS: Red Cell Distribution Width 21.2 % (11.8-14.3)
[2022-12-06 23:25] LABS: Urine WBC None Seen /hpf (0 - 5)
[2022-12-06 23:28] LABS: Albumin 3.9 g/dL (3.2-4.8); Alkaline Phosphatase 128 U/L (46-116); Anion Gap 9 (5-15); Aspartate Aminotransferase < 8 U/L (13-40); BUN/Creatinine Ratio 22.7 (10.0-20.0); Blood Urea Nitrogen 20 mg/dL (9-23); Carbon Dioxide 22 mmol/L (20-30); Chloride 109 mmol/L (98-107); Glucose 251 mg/dL (74-106); Lipase 72 U/L (12-53); Potassium 4.2 mmol/L (3.5-5.1); Sodium 140 mmol/L (136-145)
[2022-12-06 23:29] LABS: Bilirubin, Total 1.2 mg/dL (0.2-1.0); Total Protein 7.4 g/dL (5.7-8.2)
[2022-12-06] MEDS ORDERED: SODIUM CHLORIDE 0.9% 500 ML IV ONE (23:45)
[2022-12-06 23:52] LABS: Urine Bacteria FEW /hpf (None Seen); Urine Blood Negative /uL (Negative); Urine Clarity Clear (Clear); Urine Hyaline Cast FEW /lpf (0 - 2); Urine Protein, UAD Negative (Negative); Urine Specific Gravity 1.016 (1.001-1.035); Urine Urobilinogen Normal (Negative)
[2022-12-06 23:53] LABS: Alanine Aminotransferase < 9 U/L (7-40)
[2022-12-06 23:53] LABS: Urine Color Straw (Yellow)
[2022-12-07] MEDS ORDERED: fentaNYL CITRATE 100 MCG/2 ML VL IV ONE (02:45)
[2022-12-07] MEDS ORDERED: ONDANSETRON HCL 4 MG/2 ML VIAL IV ONE (02:45)
[2022-12-07] MEDS ORDERED: LACTATED RINGER'S 1,000 ML IV ONE (02:45)
[2022-12-07] MEDS ORDERED: PIPERACILLIN-TAZOB 3.375GM 100 ML IV ONE (05:00)
[2022-12-07] MEDS ORDERED: HYDROmorphone HCL 2 MG/ML VL/or syr IV PRN (05:45)
[2022-12-07] MEDS ORDERED: HYDROcodone-ACET 5/325MG TAB PO PRN (05:45)
[2022-12-07] MEDS ORDERED: ACETAMINOPHEN 325 MG TAB PO PRN (05:45)
[2022-12-07] MEDS ORDERED: DEXTROSE (50%) 50ML SYRG IV PRN (05:45)
[2022-12-07] MEDS: SOD CHL 0.45% 1,000 ML IV SCH ×2 (06:51→19:20)
[2022-12-07] MEDS: ACCU-CHEK COMFORT CURVE STRIP VI SCH ×3 (06:51→17:24)
[2022-12-07] MEDS: InsuLIN REG 1unit/0.01ml Soln (100units/ml) SC SCH ×3 (07:06→18:00)
[2022-12-07 07:16] LABS: Eosinophils # (auto) 0.2 10 ^3/uL (0-0.8); Eosinophils % (auto) 3.9 % (0.0-7.0)
[2022-12-07 07:21] LABS: Basophils # (auto) 0 10 ^3/uL (0-0.2); Basophils % (auto) 0.3 % (0.0-2.0); Hematocrit 23.9 % (36.0-46.0); Hemoglobin 7.9 g/dL (12.2-16.2); Lymphocytes % (auto) 20.3 % (10.0-50.0); Mean Corpuscular Hemoglobin 29.5 pg (28.0-32.0); Mean Corpuscular Hgb Conc. 32.8 g/dL (32.0-36.0); Monocytes # (auto) 0.4 10 ^3/uL (0-1.3); Neutrophils # (auto) 3.4 10 ^3/uL (1.6-8.6); Neutrophils % (auto) 67.5 % (37.0-80.0); Nucleated Red Blood Cells % 0.1 %; Red Blood Cells 2.66 10^6/uL (4.0-5.20); Red Cell Distribution Width 20.7 % (11.8-14.3)
[2022-12-07 07:30] VITALS: PULSE 85; RESP 19; O2SAT 94
[2022-12-07 07:47] LABS: Albumin 3.9 g/dL (3.2-4.8); Alkaline Phosphatase 110 U/L (46-116); Anion Gap 10 (5-15); Aspartate Aminotransferase < 8 U/L (13-40); BUN/Creatinine Ratio 21.3 (10.0-20.0); Bilirubin, Total 1.3 mg/dL (0.2-1.0); Blood Urea Nitrogen 17 mg/dL (9-23); Calcium 8.9 mg/dL (8.5-10.1); Carbon Dioxide 21 mmol/L (20-30); Chloride 109 mmol/L (98-107); Glucose 200 mg/dL (74-106); Potassium 3.9 mmol/L (3.5-5.1); Sodium 140 mmol/L (136-145); Total Protein 7.2 g/dL (5.7-8.2)
[2022-12-07 07:48] LABS: Alanine Aminotransferase < 9 U/L (7-40)
[2022-12-07] MEDS: cefTRIAXone 1GM/50ML D5W 50 ML IV SCH (08:35)
[2022-12-07 18:02] VITALS: BP 102/32; PULSE 78; RESP 18; TEMP 97.7; O2SAT 98
[2022-12-07] MEDS ORDERED: SODIUM CHLORIDE 0.9% 2,000 ML IV ONE (18:30)
[2022-12-07 20:00] VITALS: BP 120/40; PULSE 75; PULSE 77; RESP 20; TEMP 98; O2SAT 92
[2022-12-07 21:30] LABS: INR 1.39 (0.9-1.15); Partial Thromboplastin Time 32.5 SEC (24.5-34.5); Prothrombin Time 14.3 sec (9.3-11.8)
[2022-12-07 22:00] VITALS: BP 120/40; PULSE 75; RESP 20; TEMP 98; O2SAT 92
[2022-12-08] VITALS (7 sets, daily range): BP systolic 110–153; BP diastolic 29–96; PULSE 65–86; RESP 18–24; TEMP 97.6–98.2; O2SAT 90–98
[2022-12-08] MEDS: ACCU-CHEK COMFORT CURVE STRIP VI SCH ×5 (01:16→22:28)
[2022-12-08] MEDS ORDERED: MIDODRINE HCL 10 MG TAB PO ONE (01:45)
[2022-12-08] MEDS: MIDODRINE HCL 10 MG TAB PO SCH ×3 (05:18→17:19)
[2022-12-08 05:42] LABS: Basophils # (auto) 0 10 ^3/uL (0-0.2); Eosinophils # (auto) 0.3 10 ^3/uL (0-0.8); Hemoglobin 7.2 g/dL (12.2-16.2); Lymphocytes # (auto) 0.8 10 ^3/uL (0.4-5.4); Monocytes # (auto) 0.2 10 ^3/uL (0-1.3); Neutrophils # (auto) 1.8 10 ^3/uL (1.6-8.6); White Blood Cell 3.1 10^3/uL (4.4-10.8)
[2022-12-08 05:45] LABS: Basophils % (auto) 0.2 % (0.0-2.0); Eosinophils % (auto) 10.3 % (0.0-7.0); Hematocrit 22.5 % (36.0-46.0); Mean Corpuscular Hemoglobin 29.9 pg (28.0-32.0); Mean Corpuscular Hgb Conc. 32.2 g/dL (32.0-36.0); Mean Corpuscular Volume 92.9 fL (80.0-100.0); Monocytes % (auto) 5.7 % (0.0-12.0); Neutrophils % (auto) 56.8 % (37.0-80.0); Red Blood Cells 2.42 10^6/uL (4.0-5.20)
[2022-12-08 06:02] LABS: Red Cell Distribution Width 20.8 % (11.8-14.3)
[2022-12-08 06:09] LABS: Alkaline Phosphatase 99 U/L (46-116); Anion Gap 8 (5-15); Blood Urea Nitrogen 12 mg/dL (9-23); Calcium 8.2 mg/dL (8.7-10.4); Carbon Dioxide 22 mmol/L (20-30); Chloride 112 mmol/L (98-107); Glucose 144 mg/dL (74-106); Potassium 3.3 mmol/L (3.5-5.1); Sodium 142 mmol/L (136-145)
[2022-12-08 06:10] LABS: Albumin 3.2 g/dL (3.2-4.8); Aspartate Aminotransferase < 8 U/L (13-40); Bilirubin, Total 0.9 mg/dL (0.2-1.0)
[2022-12-08] MEDS: InsuLIN REG 1unit/0.01ml Soln (100units/ml) SC SCH ×4 (06:18→17:19)
[2022-12-08 06:26] LABS: Alanine Aminotransferase < 9 U/L (7-40)
[2022-12-08] MEDS ORDERED: INFLUENZA QUAD 2023-2024 0.5 ML SYRG IM ONE (07:45)
[2022-12-08] MEDS: cefTRIAXone 1GM/50ML D5W 50 ML IV SCH (08:52)
[2022-12-08] MEDS ORDERED: POTASSIUM CHLORIDE 40 MEQ, LIDOCAINE 1% (LOCAL ANESTH.) 4 ML in SODIUM CHL 0.9% 250 ML IV ONE (12:30)
[2022-12-08] MEDS: SOD CHL 0.45% 1,000 ML IV SCH ×2 (13:52→22:24)
[2022-12-08] MEDS: ONDANSETRON HCL 4 MG/2 ML VIAL IV PRN (16:15)
[2022-12-09] VITALS (7 sets, daily range): BP systolic 113–122; BP diastolic 29–40; PULSE 64–80; RESP 18–21; TEMP 97.4–98; O2SAT 93–100
[2022-12-09] MEDS: MIDODRINE HCL 10 MG TAB PO SCH ×3 (04:45→17:58)
[2022-12-09 05:08] LABS: Basophils # (auto) 0 10 ^3/uL (0-0.2); Basophils % (auto) 0.2 % (0.0-2.0); Eosinophils # (auto) 0.3 10 ^3/uL (0-0.8); Hemoglobin 7.6 g/dL (12.2-16.2); Neutrophils # (auto) 2.8 10 ^3/uL (1.6-8.6)
[2022-12-09 05:10] LABS: Eosinophils % (auto) 7.3 % (0.0-7.0); Hematocrit 23.6 % (36.0-46.0); Lymphocytes # (auto) 1.1 10 ^3/uL (0.4-5.4); Lymphocytes % (auto) 25.1 % (10.0-50.0); Mean Corpuscular Hemoglobin 30.1 pg (28.0-32.0); Monocytes # (auto) 0.3 10 ^3/uL (0-1.3); Monocytes % (auto) 5.6 % (0.0-12.0); Neutrophils % (auto) 61.8 % (37.0-80.0); Nucleated Red Blood Cells % 0.1 %; Red Blood Cells 2.51 10^6/uL (4.0-5.20); White Blood Cell 4.5 10^3/uL (4.4-10.8)
[2022-12-09 05:14] LABS: Red Cell Distribution Width 21.4 % (11.8-14.3)
[2022-12-09 05:26] LABS: Albumin 3.3 g/dL (3.2-4.8); Alkaline Phosphatase 105 U/L (46-116); Anion Gap 14 (5-15); Aspartate Aminotransferase < 8 U/L (13-40); BUN/Creatinine Ratio 12.5 (10.0-20.0); Bilirubin, Total 0.8 mg/dL (0.2-1.0); Blood Urea Nitrogen 8 mg/dL (9-23); Calcium 8.7 mg/dL (8.7-10.4); Carbon Dioxide 16 mmol/L (20-30); Chloride 109 mmol/L (98-107); Glucose 104 mg/dL (74-106); Magnesium 1.8 mg/dL (1.6-2.6); Potassium 3.8 mmol/L (3.5-5.1); Sodium 139 mmol/L (136-145); Total Protein 6.4 g/dL (5.7-8.2)
[2022-12-09] MEDS: InsuLIN REG 1unit/0.01ml Soln (100units/ml) SC SCH ×3 (06:00→17:59)
[2022-12-09 06:05] LABS: Alanine Aminotransferase < 9 U/L (7-40)
[2022-12-09] MEDS: ACCU-CHEK COMFORT CURVE STRIP VI SCH ×3 (06:32→17:59)
[2022-12-09] MEDS ORDERED: SODIUM CHLORIDE 0.9% 500 ML IV ONE (06:45)
[2022-12-09] MEDS: cefTRIAXone 1GM/50ML D5W 50 ML IV SCH (09:06)
[2022-12-09] MEDS: ONDANSETRON HCL 4 MG/2 ML VIAL IV PRN ×3 (09:06→19:22)
[2022-12-09 14:47] LABS: Triglycerides 131 mg/dL (< 150)
[2022-12-09 14:48] LABS: LDL Cholesterol 35 mg/dL (< 100)
[2022-12-09 14:50] LABS: Cholesterol 75 mg/dL (< 200); HDL Cholesterol 17 mg/dL (40-59)
[2022-12-09] MEDS: SOD CHL 0.45% 1,000 ML IV SCH (14:51)
[2022-12-09] MEDS: LOPERAMIDE HCL 2 MG CAP/TAB PO PRN (19:22)
[2022-12-09] MEDS: metroNIDAZOLE 500MG/100ML 100 ML IV SCH ×2 (21:16→21:22)
[2022-12-10] VITALS (7 sets, daily range): BP systolic 109–121; BP diastolic 29–35; PULSE 75–87; RESP 17–22; TEMP 97.2–98.2; O2SAT 95–100
[2022-12-10] MEDS: ONDANSETRON HCL 4 MG/2 ML VIAL IV PRN ×5 (00:04→23:24)
[2022-12-10] MEDS: ACCU-CHEK COMFORT CURVE STRIP VI SCH ×4 (00:07→18:21)
[2022-12-10] MEDS: InsuLIN REG 1unit/0.01ml Soln (100units/ml) SC SCH ×4 (00:09→18:00)
[2022-12-10] MEDS: SOD CHL 0.45% 1,000 ML IV SCH ×2 (00:40→14:40)
[2022-12-10] MEDS: LOPERAMIDE HCL 2 MG CAP/TAB PO PRN (04:48)
[2022-12-10] MEDS: MIDODRINE HCL 10 MG TAB PO SCH ×3 (05:25→18:00)
[2022-12-10] MEDS ORDERED: PROMETHAZINE HCL 25 MG/ML 1ML IV ONE (05:45)
[2022-12-10 06:50] LABS: Albumin 3.7 g/dL (3.2-4.8); Alkaline Phosphatase 110 U/L (46-116); Anion Gap 19 (5-15); Aspartate Aminotransferase < 8 U/L (13-40); Bilirubin, Total 0.6 mg/dL (0.2-1.0); Blood Urea Nitrogen 7 mg/dL (9-23); Carbon Dioxide 13 mmol/L (20-30); Chloride 107 mmol/L (98-107); Glucose 175 mg/dL (74-106); Potassium 3.7 mmol/L (3.5-5.1); Sodium 139 mmol/L (136-145); Total Protein 6.8 g/dL (5.7-8.2)
[2022-12-10 06:51] LABS: Basophils # (auto) 0 10 ^3/uL (0-0.2); Eosinophils # (auto) 0.1 10 ^3/uL (0-0.8); Eosinophils % (auto) 3.7 % (0.0-7.0); Lymphocytes # (auto) 0.5 10 ^3/uL (0.4-5.4); Monocytes # (auto) 0.2 10 ^3/uL (0-1.3); Neutrophils # (auto) 3.1 10 ^3/uL (1.6-8.6); Red Blood Cells 2.69 10^6/uL (4.0-5.20)
[2022-12-10 06:52] LABS: Alanine Aminotransferase < 9 U/L (7-40)
[2022-12-10 06:54] LABS: Basophils % (auto) 0.2 % (0.0-2.0); Hematocrit 25.6 % (36.0-46.0); Lymphocytes % (auto) 12.5 % (10.0-50.0); Mean Corpuscular Hemoglobin 29.8 pg (28.0-32.0); Mean Corpuscular Hgb Conc. 31.4 g/dL (32.0-36.0); Mean Corpuscular Volume 94.9 fL (80.0-100.0); Neutrophils % (auto) 77.6 % (37.0-80.0); Nucleated Red Blood Cells % 0.2 %; Red Cell Distribution Width 21.2 % (11.8-14.3)
[2022-12-10] MEDS: cefTRIAXone 1GM/50ML D5W 50 ML IV SCH (10:39)
[2022-12-10] MEDS: metroNIDAZOLE 500MG/100ML 100 ML IV SCH ×2 (14:40→21:38)
[2022-12-11] VITALS (8 sets, daily range): BP systolic 111–160; BP diastolic 32–72; PULSE 70–92; RESP 18–24; TEMP 97.4–98.6; O2SAT 92–99
[2022-12-11] MEDS: ACCU-CHEK COMFORT CURVE STRIP VI SCH ×4 (00:25→17:50)
[2022-12-11] MEDS: InsuLIN REG 1unit/0.01ml Soln (100units/ml) SC SCH ×4 (00:27→17:50)
[2022-12-11] MEDS: metroNIDAZOLE 500MG/100ML 100 ML IV SCH ×3 (06:00→22:21)
[2022-12-11] MEDS: MIDODRINE HCL 10 MG TAB PO SCH ×3 (06:00→18:00)
[2022-12-11] MEDS: ONDANSETRON HCL 4 MG/2 ML VIAL IV PRN ×3 (06:02→13:46)
[2022-12-11] MEDS: SOD CHL 0.45% 1,000 ML IV SCH ×4 (06:09→22:26)
[2022-12-11] MEDS: cefTRIAXone 1GM/50ML D5W 50 ML IV SCH (08:39)
[2022-12-11] MEDS: LOPERAMIDE HCL 2 MG CAP/TAB PO PRN ×2 (08:41→17:34)
[2022-12-11] MEDS ORDERED: LIDOCAINE VISCOUS 2% 15ML UD ONE (14:34)
[2022-12-11] MEDS ORDERED: fentaNYL CITRATE 100 MCG/2 ML VL ONE (14:45)
[2022-12-11] MEDS ORDERED: MIDAZOLAM HCL 2MG/2ML 2ml VIAL (1mg/ml) ONE (14:45)
[2022-12-11] MEDS ORDERED: DexAMETHasone SOD PHOS 10MG/1ML VIAL INJ ONE (15:01)
[2022-12-11] MEDS ORDERED: PROPOFOL 10 MG/ML 20 ML IV ONE (15:01)
[2022-12-11] MEDS: SUCRALFATE 1 GM/10 ML ORAL SUSP PO SCH ×2 (16:42→22:21)
[2022-12-11] MEDS: NYSTATIN (MOUTH-THROAT) 500,000 UNITS/5 ML SUSP MT SCH ×2 (17:35→22:21)
[2022-12-11] MEDS ORDERED: ATORVASTATIN 20 MG TAB PO SCH (22:00)
[2022-12-11] MEDS: PANTOPRAZOLE 40 MG/10 ML VIAL INJ IV SCH (22:21)
[2022-12-11] MEDS: CILOSTAZOL 100 MG TAB PO SCH (22:21)
[2022-12-12] MEDS: ACCU-CHEK COMFORT CURVE STRIP VI SCH ×2 (00:02→06:06)
[2022-12-12] MEDS: InsuLIN REG 1unit/0.01ml Soln (100units/ml) SC SCH ×2 (00:02→06:10)
[2022-12-12 05:00] VITALS: BP 103/39; PULSE 81; RESP 18; TEMP 98; O2SAT 97
[2022-12-12] MEDS: metroNIDAZOLE 500MG/100ML 100 ML IV SCH (05:35)
[2022-12-12] MEDS: NYSTATIN (MOUTH-THROAT) 500,000 UNITS/5 ML SUSP MT SCH (05:39)
[2022-12-12] MEDS: MIDODRINE HCL 10 MG TAB PO SCH (05:40)
[2022-12-12] MEDS: SUCRALFATE 1 GM/10 ML ORAL SUSP PO SCH ×2 (06:06→11:17)
[2022-12-12 08:00] VITALS: PULSE 84; RESP 18
[2022-12-12] MEDS ORDERED: MET500T PO (08:31)
[2022-12-12] MEDS ORDERED: SUCR1TAB22 OR (08:31)
[2022-12-12] MEDS ORDERED: LEVO500T91 PO (08:31)
[2022-12-12] MEDS ORDERED: PANT40T PO (08:31)
[2022-12-12] MEDS: cefTRIAXone 1GM/50ML D5W 50 ML IV SCH (08:46)
[2022-12-12] MEDS: CILOSTAZOL 100 MG TAB PO SCH (08:46)
[2022-12-12] MEDS: PANTOPRAZOLE 40 MG/10 ML VIAL INJ IV SCH (08:46)
[2022-12-12 08:47] VITALS: BP 106/40; PULSE 83; RESP 16; TEMP 98; O2SAT 93
[2022-12-12 10:41] VITALS: BP 108/52; PULSE 83; RESP 16; TEMP 36.7; O2SAT 93
== END 2022-12-12 11:37 | disposition home or self-care (01) | DRG 241 ==
LOC: ER 21:45 → EDBD 21:45 → TELE 12-07 06:41 → TELE-CENTR 12-07 17:50
PROVIDERS: ADMIT Nurse Practitioner Family; ATTEND Family Medicine
PROC: 0DB68ZX Excision of Stomach, Via Natural or Artificial Opening Endoscopic, Diagnostic (ICD-10-PCS; 2022-12-11)
PROC: 0DB38ZX Excision of Lower Esophagus, Via Natural or Artificial Opening Endoscopic, Diagnostic (ICD-10-PCS; 2022-12-11)
PROC: 0DB98ZX Excision of Duodenum, Via Natural or Artificial Opening Endoscopic, Diagnostic (ICD-10-PCS; principal; 2022-12-11 14:45)
DX: K26.9 Duodenal ulcer, unspecified as acute or chronic, without hemorrhage or perforation (principal); I11.0 Hypertensive heart disease with heart failure; I50.32 Chronic diastolic (congestive) heart failure; K22.10 Ulcer of esophagus without bleeding; D64.9 Anemia, unspecified; E11.65 Type 2 diabetes mellitus with hyperglycemia; E78.00 Pure hypercholesterolemia, unspecified; I73.9 Peripheral vascular disease, unspecified; K29.70 Gastritis, unspecified, without bleeding; E78.5 Hyperlipidemia, unspecified; M54.30 Sciatica, unspecified side; R74.8 Abnormal levels of other serum enzymes; K44.9 Diaphragmatic hernia without obstruction or gangrene; K29.80 Duodenitis without bleeding; Z87.11 Personal history of peptic ulcer disease; Z82.49 Family history of ischemic heart disease and other diseases of the circulatory system; Z83.3 Family history of diabetes mellitus; Z90.710 Acquired absence of both cervix and uterus; Z79.4 Long term (current) use of insulin; Z88.5 Allergy status to narcotic agent; Z88.8 Allergy status to other drugs, medicaments and biological substances; Z98.51 Tubal ligation status
CPT/HCPCS: 36415; 71045; 76705; 78226; 80053; 80061; 81001; 82962; 83036; 83690; 83735; 83880; 84443; 84484; 85025; 85610; 85730; 86850; 86900; 86901; 87081; 87493; 93005; 93306; 96361; 96365; 96375; C9113; G0378; J0696; J1100; J1815; J2001; J2250; J2405; J2543; J2704; J3490

== ENCOUNTER 2024-04-23 15:00 | Emergency (ER) | payer MEDICAID ==
[~2024-04-23] VITALS: Ht 154.9 cm; Wt 81.8 kg
[~2024-04-23 15:00] MED LIST changes: -CILO100T PO; +CILO100T3 PO; +LEVO500T91 PO; +MET500T PO; +PANT40T PO; +SUCR1TAB31 OR
[2024-04-23 15:43] VITALS: BP 128/51; PULSE 81; RESP 16; TEMP 98; O2SAT 92
[2024-04-23] MEDS: ACETAMINOPHEN 325 MG TAB PO ONE (16:00)
--- NOTE | 2024-04-23 16:02 | ED.PDOC ---
Raza. trauma (HPI) HPI Comments A 63 YEAR OLD FEMALE PRESENTS TO THE ED WITH COMPLAINT OF LOWER BACK PAIN AND RIGHT SHOULDER PAIN S/P FALL. PATIENT STATES SHE ACCIDENTALLY SLIPPED AND FELL ON ICE EARLIER TODAY AND LANDED ON THE RIGHT SIDE OF HER BODY. PATIENT REPORTS SHE IS NOW EXPERIENCING RIGHT SHOULDER PAIN AND LOWER BACK PAIN THAT IS WORSE WITH MOVEMENT. PATIENT IS ABLE TO WALK AND BEAR WEIGHT WITH A STABLE GAIT. PATIENT DENIES HEAD INJURY, NECK INJURY, LOC, SADDLE ANESTHESIA, URINARY INCONTINENCE, BOWEL INCONTINENCE, FEVER, CHILLS, SHORTNESS OF BREATH, CHEST PAIN, ABDOMINAL PAIN, NAUSEA, VOMITING, HEADACHE, OR OTHER COMPLAINTS. NO OTHER SYMPTOMS OR MODIFYING FACTORS AT THIS TIME. PATIENT IS ALERT, ORIENTED X 4, AND HAS STEADY GAIT. Chief Complaint: Fall Injury Time Seen by MD: 15:17 Primary Care Provider: Wilder Hung notes: Nurses Notes, Medications, Allergies Allergies: Coded Allergies: Hydrocodone (Verified Allergy, Severe, 09/25/21) Naproxen (Verified Allergy, Severe, 09/25/21) Tramadol (Verified Allergy, Severe, 09/25/21) Ibuprofen (Verified Allergy, Unknown, 04/23/24) Home Meds Active Scripts Prednisone (Prednisone) 20 Mg Tab, 40 MG PO DAILY, #20 TAB Prov:JANES REYES 04/23/24 Acetaminophen (Tylenol Extra Strength Fo) 500 Mg Tab, 1000 MG PO BID, #40 TAB Prov:JANES REYES 04/23/24 Metronidazole (Metronidazole) 500 Mg Tab, 500 MG PO TID, #20 TAB Prov:VICKY HUBER MD 12/12/22 Levofloxacin Hemihydrate (LEVAQUIN 500 MG) 500 Mg Tab, 1 TAB PO DAILY, #7 TAB Prov:VICKY HUBER MD 12/12/22 Sucralfate (CARAFATE) 1 Gm Tab, 1 GM OR QID, #120 TAB Prov:VICKY HUBER MD 12/12/22 Pantoprazole Sodium Sesquihydr (Pantoprazole Sodium) 40 Mg Tab, 40 MG PO BID, #60 TAB Prov:VICKY HUBER MD 12/12/22 Epinephrine (Anaphylaxis) (Auvi-Q) 0.1 Mg/0.1 Ml Inj, 0.1 MG IJ O PRN for 1 Day, #1 INJ Prov:ISRRAEL SCOTT DO 12/04/22 Prednisone (Prednisone) 20 Mg Tab, 40 MG PO DAILY for 5 Days, #10 TAB Prov:ISRRAEL SCOTT DO 12/04/22 Ciprofloxacin Hcl (Ciprofloxacin Hcl) 500 Mg Tab, 500 MG PO BID for 5 Days, #10 TAB Prov:CATERINA NICHOLS NP 11/06/22 Nitrofurantoin (Nitrofurantoin) 100 Mg Cap, 1 CAP PO BID, #10 CAP Prov:FERMÍN FUENTES MD 10/17/22 Cilostazol (Cilostazol) 100 Mg Tab, 1 TAB PO BID, #60 TAB 5 Refills Prov:FERMÍN FUENTES MD 10/17/22 Aspirin (Aspir-81) 81 Mg Tab, 1 TAB PO DAILY, #30 TAB 5 Refills Prov:FERMÍN FUENTES MD 10/17/22 Reported Medications Gabapentin (Gabapentin) 300 Mg Cap, 1 CAP PO TID, #90 CAP 5 Refills 10/15/22 Estrogens, Conjugated (PREMARIN TABLET) 0.3 Mg Tb, 1 TAB PO DAILY, #30 TAB 11 Refills 10/15/22 Loratadine (CLARITIN TABLET) 10 Mg Tb, 10 MG GT, TAB 10/15/22 Atorvastatin Calcium (ATORVASTATIN CALCIUM) 10 Mg Tab, 1 TAB PO DAILY, #30 TAB 5 Refills 10/15/22 Glimepiride (Glimepiride) 4 Mg Tab, 1 TAB PO DAILY, #30 TAB 5 Refills 10/15/22 Montelukast Sodium (MONTELUKAST SODIUM) 10 Mg Tab, 1 TAB PO DAILY, #30 TAB 5 Refills 10/15/22 Cholecalciferol (VITAMIN D3) 2,000 Unit Tab, 2000 UNIT PO, TAB 10/15/22 Ezetimibe (Ezetimibe) 10 Mg Tab, 10 MG PO, TAB 10/15/22 Ferrous Gluconate (Iron 27) 240 Mg Tab, 240 MG PO, TAB 10/15/22 Oxymetazoline Hcl (Nasal [place]) 0.05 % Spr, 0.05 % NA, SPRAY 10/15/22 Baclofen (Baclofen) 10 Mg Tab, 10 MG PO TID, TAB 10/15/22 Ferrous Sulfate (FERROUS SULFATE) 325 Mg Tb, 1 TAB PO TID, #30 TAB 3 Refills 10/15/22 Ascorbic Acid (VITAMIN C) 500 Mg Chw, 500 MG OR, TAB.CHEW 10/15/22 Zinc Gluconate (ZINC) 100 Mg Tab, 100 MG PO, TAB 10/15/22 Montelukast Sodium (MONTELUKAST SODIUM) 10 Mg Tab, 1 TAB PO DAILY 10/15/22 Cholecalciferol (Vitamin D-3 Super Strengt) 2,000 Unit Tab, 1 TAB PO DAILY 10/15/22 Baclofen (Baclofen) 10 Mg Tab, 1 TAB PO TID 10/15/22 Ezetimibe (Ezetimibe) 10 Mg Tab, 1 TAB PO DAILY 10/15/22 Cholecalciferol (VITAMIN D3) 2,000 Unit Tab, 1 CAP PO DAILY 10/15/22 Loratadine (CLARITIN TABLET) 10 Mg Tb, 1 TAB PO DAILY 10/15/22 Estrogens, Conjugated (PREMARIN TABLET) 0.3 Mg Tb, 1 TAB PO DAILY 10/15/22 Metformin Hydrochloride (Metformin Hcl) 1,000 Mg Tab, 1 TAB PO BID 10/15/22 Ferrous Sulfate (Ferosul) 325 Mg Tab, PO 10/15/22 Gabapentin (Gabapentin) 300 Mg Cap, 1 CAP PO TID 10/15/22 Glimepiride (Glimepiride) 4 Mg Tab, 1 TAB PO DAILY 10/15/22 Escitalopram Oxalate (ESCITALOPRAM OXALATE) 20 Mg Tab, 1 TAB PO DAILY 10/15/22 Atorvastatin Calcium (ATORVASTATIN CALCIUM) 10 Mg Tab, 1 TAB PO DAILY 10/15/22 Information Source: Patient Mode of Arrival: Ambulatory Severity: Moderate Timing: Hours Duration: Since onset, Hours Prehospital treatment: None Location: Back (LOWER BACK), (R) Shoulder Location of laceration: None Mechanism: Fall Associated signs and symtoms: None Past Medical History PAST MEDICAL HISTORY: Anemia, Cancer, DM, High Lipids, HTN Past Medical History (Other): CHRONIC LOW BACK PAIN Surgical History: Hysterectomy, Tonsillectomy, Tubal Ligation 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 CLERK Hx Family History Family History: Reviewed,noncontributory to illness, Family hx of HTN Social History Smoker: Non-Smoker Alcohol: Denies ETOH Use Drugs: Denies Drug Use Lives In: Home Constitutional: denies: chills, diaphoresis, fatigue, fever, malaise, sweats, weakness, others EENTM: denies: blurred vision, double vision, ear bleeding, ear discharge, ear drainage, ear pain, ear ringing, eye pain, eye redness, hearing loss, mouth pain, mouth swelling, nasal discharge, nose bleeding, nose congestion, nose pain, photophobia, tearing, throat pain, throat swelling, voice changes, others Respiratory: denies: cough, hemoptysis, orthopnea, SOB at rest, shortness of breath, SOB with excertion, stridor, wheezing, others Cardiovascular: denies: chest pain, dizzy spells, diaphoresis, Dyspnea on exertion, edema, irregular heart beat, left arm pain, lightheadedness, palpitations, PND, syncope, others Gastrointestinal: denies: abdomen distended, abdominal pain, blood streaked bowels, constipated, diarrhea, dysphagia, difficulty swallowing, hematemesis, melena, nausea, poor appetite, poor fluid intake, rectal bleeding, rectal pain, vomiting, others Genitourinary: denies: abnormal vagina bleeding, burning, dyspareunia, dysuria, flank pain, frequency, hematuria, incontinence, pain, , vagina discha rge, urgency, others Neurological: denies: dizziness, fainting, headache, left sided numbness, left sided weakness, numbness, paresthesia, pre-existing deficit, right sided numbness, right sided weakness, seizure, speech problems, tingling, tremors, weakness, others Musculoskeletal: reports: back pain (LOWER BACK PAIN), joint pain, muscle pain, others (RIGHT SHOULDER PAIN); denies: gout, joint swelling, muscle stiffness, neck pain Integumetry: denies: bruises, change in color, change in hair/nails, dryness, laceration, lesions, lumps, rash, wounds, others Allergic/Immunocompromised: denies: Difficulty Healing, Frequent Infections, Hives, Itching, others Hematologic/Lymphatic: denies: anemia, blood clots, easy bleeding, easy bruising, swollen glands, others Endocrine: denies: excessive hunger, excessive sweating, excessive thirst, excessive urination, flushing, intolerance to cold, intolerance to heat, unexplained weight gain, unexplained weight loss, others Psychiatric: denies: anxiety, bipolar disorder, depression, hopeless, panic disorder, schizophrenia, sleepless, suicidal, others All Other Systems: Reviewed and Negative Physical Exam General Appearance: No Apparent Distress, Obese HEENT: Normal ENT Inspection, PERRL/EOMI, Pharynx Normal, TMs Normal Neck: Full Range of Motion, Non-Tender, Normal, Normal Inspection Respiratory: Chest Non-Tender, Lungs Clear, No Accessory Muscle Use, No Respiratory Distress, Normal Breath Sounds Cardiovascular: No Edema, No JVD, No Murmur, No Gallop, Normal Peripheral Pulses, Regular Rate/Rhythm Breast Exam: Deferred Gastrointestinal: No Organomegaly, Non Tender, No Pulsatile Mass, Normal Bowel Sounds, Soft Genitalia: Deferred Pelvic: Deferred Rectal: Deferred Extremities: No calf tenderness, Normal capillary refill, Normal range of motion, No pedal edema, Tender (ON RIGHT SHOULDER, NO BONY TENDERNESS, SWELLING AND DEFORMITY. ), Other (NO REDNESS AND SWELLING ON RIGHT LOWER LEG, NO DVT SIGNS. ) Musculoskeletal : Location: Bilateral Extremity Location: Back Apperance: Tenderness (AND MUSCLE SPASM ON LOWER BACK, NO BONY TENDERNESS AND SWELLING. 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 Was a procedure done?: No Differential Diagnosis Multiple Trauma: Fractures, Contusion, Other (LOW BACK STRAIN, SPRAIN) Neck Injury: N/A X-Ray, Labs, Meds, VS Vital Signs Date Time Temp Pulse Resp B/P (MAP) Pulse Ox O2 Delivery O2 Flow Rate FiO2 04/23/24 15:43 98.0 81 16 128/51 (76) 92 98.0 04/23/24 15:43 81 16 92 Room Air 04/23/24 15:15 98.0 81 16 128/51 (76) 92 Current Medications Medications (Trade) Dose Ordered Sig/Karen Route Start Time Stop Time Status Last Admin Acetaminophen (Tylenol Tablet) 1,000 mg ONCE ONCE PO 04/23/24 16:00 04/23/24 16:01 DC 04/23/24 16:00 INDICATION: FALL TECHNIQUE: 4 views of the lumbar spine were obtained. COMPARISON: None FINDINGS: There are no acute fractures Mild scoliosis Normal sacroiliac joints 5 mm anterolisthesis of L3 on L4. IMPRESSION: 1. No acute fracture [id number] multilevel degenerative disc disease ATED BY: RAMON COLEMAN MD DICTATED DATE/TIME: 04/23/241627 SIGNED BY: RAMON COLEMAN MD SIGNED DATE/TIME: 04/23/241627 CC: CLINICAL INDICATION: FALL TECHNIQUE: XY R SHOULDER 2+ VIEW XRAY Comparison: None FINDINGS/IMPRESSION: : There is no evidence of acute fracture or dislocation. Soft tissues are unremarkable. ATED BY: RAMON COLEMAN MD DICTATED DATE/TIME: 04/23/241628 SIGNED BY: RAMON COLEMAN MD SIGNED DATE/TIME: 04/23/241628 CC: X-Ray, Labs, Meds, VS Comment EXTERNAL MEDICAL RECORDS REVIEWED: [NONE] INDEPENDENT HISTORIANS: [NONE] SOCIAL DETERMINANTS OF HEALTH: [NONE] LABS ORDERED: NONE REVIEWED AND INTERPRETED RESULTS: NONE IMAGING ORDERED: XR L-SPINE, XR SHOULDER RT TREATMENTS ORDERED: TYLENOL 1G PO PROCEDURES PERFORMED: NONE CRITICAL CARE TIME: NONE I HAVE DISCUSSED THE PATIENT WITH THE ATTENDING PHYSICIAN DR. ABEBE AND HE AGREES WITH THE PATIENT'S PLAN OF CARE AND DISPOSITION. BASED ON HISTORY OF PRESENT ILLNESS, AND PHYSICAL EXAM, PATIENT WILL BE DISCHARGED HOME. SHARED DECISION MAKING: PATIENT INSTRUCTED TO FOLLOW UP WITH PRIMARY CARE PROVIDER IN 1-2 DAYS FOR RE-EVALUATION OF SYMPTOMS. PATIENT VERBALIZES UNDERSTANDING TO RETURN TO ED FOR NEW OR WORSENING SYMPTOMS OR IF FOLLOW UP WITH PCP CANNOT BE OBTAINED. PATIENT FEELS COMFORTABLE GOING HOME AT THIS TIME. ALL QUESTIONS ADDRESSED AT TIME OF DISCHARGE. Images Reviewed?: Images reviewed and evaluated by me Time of 1ST Reevaluation: 16:46 Reevaluation 1ST: Improved Patient Education/Counseling: Diagnosis, Treatment, Need For Follow Up Family Education/Counseling: Diagnosis, Treatment, Need For Follow Up Medical Screening: No EMC Exist At This Time Departure 1 Departure Time of Disposition: 16:46 Impression: Primary Impression: Low back strain Qualified Codes: S39.012A - Strain of muscle, fascia and tendon of lower back, initial encounter Additional Impressions: Muscle strain of right shoulder Qualified Codes: S46.911A - Strain of unspecified muscle, fascia and tendon at shoulder and upper arm level, right arm, initial encounter DDD (degenerative disc disease), lumbar Qualified Codes: M51.362 - Other intervertebral disc degeneration, lumbar region with discogenic back pain and lower extremity pain Lumbar radiculopathy Disposition: HOME / SELF CARE / HOMELESS Condition: Stable Additional Instructions: FOLLOW-UP WITH PCP IN 1 TO 2 DAYS. TAKE MEDICATIONS PRESCRIBED. RETURN TO ED FOR ANY NEW OR WORSENING SYMPTOMS. e-Prescriptions Prednisone (Prednisone) 20 Mg Tab 40 MG PO DAILY, #20 TAB Prov: JANES REYES 04/23/24 Acetaminophen (Tylenol Extra Strength Fo) 500 Mg Tab 1000 MG PO BID, #40 TAB Prov: JANES REYES 04/23/24 Discharged With: Self Critical Care Note Critical Care Time?: No Stability Stability form required: No I personally scribed for JANES REYES ([email or web address]) on 04/23/24 at 16:02. Electronically submitted by Bebo Lees ([employer]). I personally scribed for JANES REYES ([email or web address]) on 04/23/24 at 16:37. Electronically submitted by Bebo Lees ([email or web address]). I personally scribed for JANES REYES ([email or web address]) on 04/23/24 at 16:39. Electronically submitted by Bebo Lees ([employer]). JANES REYES Apr 23, 2024 16:02
--- NOTE | 2024-04-23 16:31 | DVH ---
CLINICAL INDICATION: FALL TECHNIQUE: XY R SHOULDER 2+ VIEW XRAY Comparison: None FINDINGS/IMPRESSION: : There is no evidence of acute fracture or dislocation. Soft tissues are unremarkable.
--- NOTE | 2024-04-23 16:31 | DVH ---
INDICATION: FALL TECHNIQUE: 4 views of the lumbar spine were obtained. COMPARISON: None FINDINGS: There are no acute fractures Mild scoliosis Normal sacroiliac joints 5 mm anterolisthesis of L3 on L4. IMPRESSION: 1. No acute fracture [id number] multilevel degenerative disc disease
[2024-04-23] MEDS ORDERED: PRED20TA2 PO (16:45)
[2024-04-23] MEDS ORDERED: ACET-1304 PO (16:45)
== END 2024-04-23 17:01 | disposition home or self-care (01) ==
LOC: ER 15:00
DX: S39.012A Strain of muscle, fascia and tendon of lower back, initial encounter (principal); S46.911A Strain of unspecified muscle, fascia and tendon at shoulder and upper arm level, right arm, initial encounter; M51.16 Intervertebral disc disorders with radiculopathy, lumbar region; I10 Essential (primary) hypertension; E11.9 Type 2 diabetes mellitus without complications; Z79.02 Long term (current) use of antithrombotics/antiplatelets; Z79.52 Long term (current) use of systemic steroids; Z79.82 Long term (current) use of aspirin; Z79.84 Long term (current) use of oral hypoglycemic drugs; Z79.899 Other long term (current) drug therapy; Z88.5 Allergy status to narcotic agent; Z88.6 Allergy status to analgesic agent; Z90.710 Acquired absence of both cervix and uterus; W00.0XXA Fall on same level due to ice and snow, initial encounter; Y93.89 Activity, other specified; Y92.89 Other specified places as the place of occurrence of the external cause; Y99.8 Other external cause status
CPT/HCPCS: 72100; 73030

== ENCOUNTER 2025-01-25 08:18 | Emergency (ER) | payer MEDICAID ==
[~2025-01-25] VITALS: Ht 154.9 cm; Wt 76.3 kg
[~2025-01-25 08:18] MED LIST changes: +ACET-1304 PO
--- NOTE | 2025-01-25 09:14 | ED.PDOC ---
SOB-HPI HPI Comments 64 year old female presents with a persistent cough since Friday. The patient reported having a cough since Friday and stated that medications prescribed at urgent care, including Tessalon Perles, Flonase, and Tylenol, were not effective. The patient experienced a generalized headache, runny nose, slight fever, ear pain, and a sore throat. The patient did not report coughing up blood, recent hospitalizations, lung issues, or exposure to sick individuals. The patient reported having received a flu shot and pneumonia shot and has a medical history of diabetes, bone marrow cancer, and high cholesterol. The patient does not smoke. Chief Complaint: Flu like Time Seen by MD: 09:00 Primary Care Provider: Wilder Hung notes: Medications, Allergies Information Source: Patient Mode of Arrival: Ambulatory Severity: Moderate Timing: Days Duration: Since onset Context: At Rest PE Risk Factors: None History of: Recent URI Modifying Factors: Nothing Past Medical History PAST MEDICAL HISTORY: Anemia, Cancer, DM, High Lipids, HTN Surgical History: Hysterectomy, Tonsillectomy, Tubal Ligation DETENTION ATTENDANT History: Denies all DETENTION ATTENDANT Hx Family History Family History: Reviewed,noncontributory to illness, Family hx of HTN Social History Smoker: Non-Smoker Alcohol: Denies ETOH Use Drugs: Denies Drug Use Lives In: Home All Other Systems: Reviewed and Negative (as per HPI) Physical Exam General Appearance: Normal, Other (Patient appeared non-toxic and well- nourished.) HEENT: Normal ENT Inspection, Pharynx Normal, TMs Normal, Other (Ears appeared normal with no swelling or redness in the ear canals. No signs of throat infection.) Neck: Full Range of Motion, Non-Tender, Normal, Normal Inspection Respiratory: Chest Non-Tender, Lungs Clear, No Accessory Muscle Use, No Respiratory Distress, Normal Breath Sounds, Other (Lung arshad diminished to the right anterior lower lobe. 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 Was a procedure done?: No Differential Dx Differential Diagnosis: URI X-Ray, Labs, Meds, VS Vital Signs Date Time Temp Pulse Resp B/P (MAP) Pulse Ox O2 Delivery O2 Flow Rate FiO2 01/25/25 08:19 97.6 87 18 153/56 96 97.6 X-Ray, Labs, Meds, VS Comment 64 year old female presents with a persistent cough since Friday Patient arrives alert and oriented, ABC's intact, afebrile, vital signs stable, saturating well in room air Diagnostic imaging ordered by me and results interpreted by radiology : XY CHEST 1 VIEW: Additional MDM Review of External, Non-ED records: External records reviewed. Discussion with independent historian (EMS, family) history obtained from the patient/parents (if applicable) at bedside Chronic conditions affecting care: bone marrow cancer, DM, HLD, anemia, HTN Social determinants of health affecting care: None Consideration of admission (observation or admission): I considered escalation of care to admission for this patient, however given the reassuring workup, the patient is safe for outpatient management. ASSESSMENT: The patient presented with symptoms of a persistent cough, headache, runny nose, slight fever, shortness of breath, and sore throat. The diminished breath sounds in the right anterior lower lobe raised the suspicion of a possible respiratory infection or pneumonia. The absence of wheezing, rhonchi, and rales, alongside stable vital signs, indicated that the patient's condition might not be severe, but further evaluation was needed. A chest X-ray was deemed necessary to rule out any underlying pathology, particularly pneumonia or other respiratory complications, given the patient's symptoms and diminished lung sounds. The patient is overall well-appearing nontoxic on exam. On physical exam, respirations even and unlabored, clear to auscultation bilaterally. Oxygen stable on room air. Did not have any focal lung findings and therefore chest x-ray was not indicated during this exam Low suspicion of strep pharyngitis given physical exam findings and patient's presenting symptoms No signs of meningismus on exam Overall, the patient is well hydrated and nontoxic. Plan for symptomatic control for fever and pain as needed. The patient was able to tolerate p.o. intake in the ED. at this time, patient is safe for discharge home. The exam findings and plan discussed. We will discharge home with PCP follow up and strict return precautions. Discussed that cough can linger up to 6 weeks after viral URI Supportive care and return precautions discussed Counseled viral infection and explained that antibiotics would not be helpful in resolving the illness sooner. Recommended vitamin C, rest, handwashing, and symptomatic care. Expect 2-week course with possibly of cough lingering up to 6 weeks. Nonpharmacological remedies for fluids has been recommended as well Patient is stable for discharge at this time. External notes reviewed. Test results and diagnostic imaging interpreted. All diagnostic findings, discharge care, education and instructions provided Follow-up with PCP in 2 to 3 days Patient verbalized understanding and agreed to treatment plan Vital signs stable, afebrile, no acute distress noted Patient ambulatory with strong steady gait Advised to return precautions for any new or worsening symptoms, return to ER immediately for re-evaluation Patient is aware that the purpose of this visit was for an acute medical emergency requiring emergent stabilization. Chronic conditions, including malignancies have not been ruled out. Patient is instructed to follow up with PCP as directed and discharge instructions for continued care and workup. If unable to arrange follow-up, patient is to return to the emergency department for reassessment. Patient (parent or legal guardian if applicable) was given verbal and written discharge instructions and acknowledges understanding. Time of 1ST Reevaluation: 09:30 Reevaluation 1ST: Improved Patient Education/Counseling: Diagnosis, Treatment Family Education/Counseling: No Family Present SEPSIS Sepsis Screen Date sepsis recognized/suspect: Jan 25, 2025 Time Sepsis recognized/suspect: 819 Recent Procedure: No On Antibiotic Therapy: No Respiratory Rate >20: No Heart Rate >90: No Temp<36 C (96.8 F) or >38.3 C: No SBP <90 or MAP <65 mmHG: No New Acute Mental Status Change: No Is the patient on CPAP, BIPAP,: No Physician Orders Chest Xray 1 View (01/25/25 09:05) Vital Signs Date Time Temp Pulse Resp B/P (MAP) Pulse Ox O2 Delivery O2 Flow Rate FiO2 01/25/25 08:19 97.6 87 18 153/56 96 97.6 Departure 1 Departure Time of Disposition: 09:55 Impression: Primary Impression: Reactive airway disease Qualified Codes: J45.20 - Mild intermittent asthma, uncomplicated Disposition: HOME / SELF CARE / HOMELESS Condition: Stable e-Prescriptions Promethazine-Dm (Promethazine Dm 6.25-15 mg/5Ml) 1 Yoly Yoly 5 ML PO TIDP PRN for 10 Days, #150 ML 0 Refills Prov: ROSITA GALVAN NP 01/25/25 Albuterol Sulfate (Albuterol Sulfate Hfa) 108 Mcg/Act Aer 1 PUFF IN Q6HP PRN for 30 Days, #1 AER 0 Refills Prov: ROSITA GALVAN NP 01/25/25 Discharged With: Self Critical Care Note Critical Care Time?: No Stability Stability form required: No Heart Score Heart Score: Heart Score Response (Comments) Value History N/A 0 EKG N/A 0 Age N/A 0 Risk Factors N/A 0 Troponin N/A 0 Total 0 I personally scribed for ROSITA GALVAN NP ([email or web address]) on 01/25/25 at 09:14. Electronically submitted by Lily Thompson ([email or web address]). ROSITA GALVAN NP Jan 25, 2025 09:14
--- NOTE | 2025-01-25 09:49 | DVH ---
EXAM: XY CHEST XRAY 1 VIEW HISTORY: Cough. R/o pna COMPARISON: XY CHEST PORTABLE on DOS: 12/09/22, XY CHEST PORTABLE on DOS: 12/04/22, XY CHEST PORTABLE on DOS: 10/15/22 TECHNIQUE: Frontal view of the chest was performed. FINDINGS: No pneumothorax, consolidative infiltrates, or pulmonary edema. There is mild central peribronchial thickening. The heart is not enlarged. The aortic arch is calcific. IMPRESSION: Mild reactive airways disease. The lungs are otherwise clear.
[2025-01-25] MEDS ORDERED: PROM1SOL4 PO (09:56)
[2025-01-25] MEDS ORDERED: ALBU108A5 IN (09:56)
[2025-01-25 10:04] VITALS: BP 148/78; PULSE 78; RESP 16; TEMP 98.3; O2SAT 97
== END 2025-01-25 10:07 | disposition home or self-care (01) ==
LOC: ER 08:18
DX: J45.909 Unspecified asthma, uncomplicated (principal); E11.9 Type 2 diabetes mellitus without complications; I10 Essential (primary) hypertension; E78.5 Hyperlipidemia, unspecified; Z23 Encounter for immunization; Z90.710 Acquired absence of both cervix and uterus
CPT/HCPCS: 71045